=== PATIENT | male | born 1950 | race Caucasian/White ===

== ENCOUNTER 2016-04-15 20:55 | Emergency (ER) | payer MEDICARE, OTHER ==
[~2016-04-15] VITALS: Ht 170.2 cm; Wt 83.9 kg
[2016-04-15 22:03] LABS: BASO # 0.1 x10^3/uL (0.0-0.2); BASO % 1 % (0-3); EOS % 1 % (0-3); HEMATOCRIT 42.7 % (39.0-53.0); HEMOGLOBIN 14.1 g/dL (13.0-17.5); LYMPH # 2.4 x10^3/uL (1.0-4.8); LYMPH % 12 % (24-48); MEAN CORPUSCULAR HEMOGLOBIN 28 pg (25-35); MEAN CORPUSCULAR HGB CONC 33 g/dL (31-37); MEAN CORPUSCULAR VOLUME 83 fL (79-100); MONO % 9 % (0-9); NEUT % 78 % (31-73); PLATELET COUNT 288 x10^3/uL (140-400); RED BLOOD COUNT 5.14 x10^6/uL (4.30-5.70); RED CELL DISTRIBUTION WIDTH 14.1 % (11.5-14.5); WHITE BLOOD COUNT 20.1 x10^3/uL (4.0-11.0)
[2016-04-15 22:04] LABS: BILIRUBIN,URINE NEGATIVE (NEG); GLUCOSE,URINE NEGATIVE (NEG); NITRITE,URINE NEGATIVE (NEG); PROTEIN,URINE NEGATIVE (NEG-TRACE); UROBILINOGEN,URINE 0.2 mg/dL (0.2 mg/dL)
[2016-04-15 22:15] LABS: CREATININE 1.9 mg/dL (0.7-1.3); GFR 35.6; POTASSIUM 3.7 mmol/L (3.5-5.1)
[2016-04-15] MEDS ORDERED: IV NORMAL SALINE 1000ML BAG 1,000 ML IV ONE (22:15)
[2016-04-15 22:18] LABS: BACTERIA,URINE 0 /HPF (0-FEW); RBC,URINE OCC /HPF (0-2); SQUAMOUS EPITHELIAL CELL,UR OCC /LPF; WBC,URINE OCC /HPF (0-4)
[2016-04-15 22:21] LABS: ALBUMIN 4.6 g/dL (3.4-5.0); DIRECT BILIRUBIN 0.1 mg/dL (0.0-0.2); TOTAL BILIRUBIN 0.5 mg/dL (0.2-1.0); TOTAL PROTEIN 8.8 g/dL (6.4-8.2)
[2016-04-15] MEDS ORDERED: ONDANSETRON ODT 4 MG TAB.RAPDIS PO ONE (22:30)
[2016-04-15] MEDS ORDERED: HYDROCODONE/APAP 5/325MG TABLET. PO ONE (22:30)
--- NOTE | 2016-04-16 00:51 | RAD ---
PROCEDURE CT abdomen and pelvis without contrast HISTORY Abdominal pain and leukocytosis, renal stones TECHNIQUE Exposure: One or more of the following individualized dose reduction techniques were utilized for this exam: 1. Automated exposure control. 2. Adjustment of the mA and/or kV according to patient size. 3. Use of iterative reconstruction technique. Helical noncontrast CT imaging abdomen and pelvis COMPARISON No prior FINDINGS Abdomen: 2 centimeter sclerotic lesion L4 vertebral body. Lumbar disc bulges with osteophytes, spinal canal and neural foraminal narrowing. Lung bases unremarkable. Spleen, gallbladder, liver, pancreas and adrenals are unremarkable. Bilateral nephrolithiasis and mild renal edema. 3 centimeter left renal exophytic fluid density cystic lesion measuring 7 units. No ureteral calculi or hydronephrosis. Aorta and iliac artery calcified plaque. No abdominal free fluid. Right upper quadrant abdominal wall 5 centimeter intramuscular fatty lesion likely a lipoma. Appendix is negative. No bowel obstruction. Pelvis: Sigmoid colon diverticulosis with focal circumferential wall thickening and stranding with a hyperdense diverticulum likely diverticulitis, the edema involves the dome of the bladder where there is bladder wall thickening. No bladder calculi. Enlarged prostate. At the left groin anterior of the spermatic cord there is indeterminate 15 millimeter round hypodense lesion. Bones are unremarkable. IMPRESSION 1. Sigmoid colon diverticulitis with focal wall wall edema and thickening with a focal inflamed diverticulum. Due to the localized nature of wall thickening underlying colonic mass cannot be excluded. 2. Bladder dome wall thickening with edema contiguous with the sigmoid diverticulitis, may be reactive changes of the bladder or coinciding cystitis. 3. The appendix is negative. 4. 2 centimeter sclerotic bone lesion of the L4 vertebral body given the solitary lesion likely a bone island. 5. Right upper quadrant abdominal wall lipoma. 6. 3 centimeter exophytic left renal fluid density cystic lesion. 7. Nephrolithiasis. Electronically signed by: Maynor Verdin MD (Apr 16, 2016 00:49:50)
[2016-04-16] MEDS ORDERED: CIPR500T94 PO (02:03)
[2016-04-16] MEDS ORDERED: HYDR-2666 PO (02:05)
[2016-04-16] MEDS ORDERED: METR500T PO (02:05)
--- NOTE | 2016-04-16 02:05 | PHYS DOC ---
Past Medical History Past Medical History: Hypertension, Kidney Stone Past Surgical History: No Surgical History Alcohol Use: None Drug Use: None Adult General Chief Complaint Chief Complaint: ABDOMINAL PAIN HPI HPI 65-year-old male presenting to the emergency Department today with left lower quadrant to suprapubic abdominal pain with watery stools and chills at home. He denies chest pain shortness of breath. His pain is moderate nonradiating intermittent worse with urination and without alleviating factors. Review of systems is negative for chest pain shortness of breath headache or vomiting. All other review of systems is negative. Review of Systems Review of Systems see above Current Medications Current Medications Current Medications Medications (Trade) Dose Ordered Sig/Amira Start Time Stop Time Status Last Admin Dose Admin Acetaminophen/ Hydrocodone Bitart 2 tab 2 tab 1X ONCE 04/15/16 22:30 04/15/16 22:31 DC 04/15/16 22:27 2 TAB Ondansetron HCl (Zofran Odt) 4 mg 1X ONCE 04/15/16 22:30 04/15/16 22:31 DC 04/15/16 22:27 4 MG Sodium Chloride (Iv Sodium Chloride 0.9% 1000ml Bag) 1,000 ml @ 1,000 mls/hr 1X ONCE 04/15/16 22:15 04/15/16 23:14 DC 04/15/16 22:27 1,000 MLS/HR Allergies Allergies Allergies Coded Allergies Type Severity Reaction Last Updated Verified No Known Drug Allergies 04/15/16 No Physical Exam Physical Exam Constitutional: Well developed, well nourished, no acute distress, non-toxic appearance. [] HENT: Normocephalic, atraumatic, bilateral external ears normal, oropharynx moist, no oral exudates, nose normal. [] Eyes: PERRLA, EOMI, conjunctiva normal, no discharge. [] Neck: Normal range of motion, no tenderness, supple, no stridor. [] Cardiovascular:Heart rate regular rhythm, no murmur [] Lungs & Thorax: Bilateral breath sounds clear to auscultation [] Abdomen: abdomen is soft and mildly tenderness suprapubic region. No rebound tenderness regarding present. Negative McBurney's points. Negative Sommer sign. Skin: Warm, dry, no erythema, no rash. [] Back: No tenderness, no CVA tenderness. [] Extremities: No tenderness, no cyanosis, no clubbing, ROM intact, no edema. [] Neurologic: Alert and oriented X 3, normal motor function, normal sensory function, no focal deficits noted. [] Psychologic: Affect normal, judgement normal, mood normal. [] Current Patient Data Vital Signs Vital Signs Date Time Temp Pulse Resp B/P Pulse Ox O2 Delivery O2 Flow Rate FiO2 04/16/16 02:30 109 22 99/57 95 Room Air 04/15/16 21:58 98.6 98.6 Lab Values Laboratory Tests Test 04/15/16 21:32 04/15/16 21:55 04/15/16 22:22 Urine Collection Type Unknown Urine Color Yellow Urine Clarity Clear Urine pH 6.0 Urine Specific [place] 1.010 Urine Protein Negativemg/dL (NEG-TRACE) Urine Glucose (UA) Negativemg/dL (NEG) Urine Ketones (Stick) Negativemg/dL (NEG) Urine Blood Negative (NEG) Urine Nitrite Negative (NEG) Urine Bilirubin Negative (NEG) Urine Urobilinogen Dipstick 0.2mg/dL (0.2 mg/dL) Urine Leukocyte Esterase Negative (NEG) Urine RBC Occ/HPF (0-2) Urine WBC Occ/HPF (0-4) Urine Squamous Epithelial Cells Occ/LPF Urine Bacteria 0/HPF (0-FEW) Urine Mucus Slight/LPF White Blood Count 20.1x10^3/uL (4.0-11.0) H Red Blood Count 5.14x10^6/uL (4.30-5.70) Hemoglobin 14.1g/dL (13.0-17.5) Hematocrit 42.7% (39.0-53.0) Mean Corpuscular Volume 83fL (79-100) Mean Corpuscular Hemoglobin 28pg (25-35) Mean Corpuscular Hemoglobin Concent 33g/dL (31-37) Red Cell Distribution Width 14.1% (11.5-14.5) Platelet Count 288x10^3/uL (140-400) Neutrophils (%) (Auto) 78% (31-73) H Lymphocytes (%) (Auto) 12% (24-48) L Monocytes (%) (Auto) 9% (0-9) Eosinophils (%) (Auto) 1% (0-3) Basophils (%) (Auto) 1% (0-3) Neutrophils # (Auto) 15.7x10^3uL (1.8-7.7) H Lymphocytes # (Auto) 2.4x10^3/uL (1.0-4.8) Monocytes # (Auto) 1.7x10^3/uL (0.0-1.1) H Eosinophils # (Auto) 0.2x10^3/uL (0.0-0.7) Basophils # (Auto) 0.1x10^3/uL (0.0-0.2) Segmented Neutrophils % 61% (35-66) Band Neutrophils % 3% (0-9) Lymphocytes % 22% (24-48) L Atypical Lymphocytes % (Manual) 2% (0-0) H Monocytes % 12% (0-10) H Toxic Vacuolation Slight Platelet Estimate Adequate (ADEQUATE) Sodium Level 140mmol/L (136-145) Potassium Level 3.7mmol/L (3.5-5.1) Chloride Level 100mmol/L (98-107) Carbon Dioxide Level 30mmol/L (21-32) Anion Gap 10 (6-14) Blood Urea Nitrogen 32mg/dL (8-26) H Creatinine 1.9mg/dL (0.7-1.3) H Estimated GFR (Cockcroft-Gault) 35.6 Glucose Level 128mg/dL (70-99) H Calcium Level 10.0mg/dL (8.5-10.1) Total Bilirubin 0.5mg/dL (0.2-1.0) Direct Bilirubin 0.1mg/dL (0.0-0.2) Aspartate Amino Transferase (AST) 22U/L (15-37) Alanine Aminotransferase (ALT) 22U/L (16-63) Alkaline Phosphatase 85U/L (46-116) Troponin I Quantitative < 0.017ng/mL (0.000-0.055) QA-Pne-F-Type Natriuretic Peptide 67pg/mL (0-124) Total Protein 8.8g/dL (6.4-8.2) H Albumin 4.6g/dL (3.4-5.0) Lipase 214U/L (73-393) Lactic Acid Level 1.2mmol/L (0.4-2.0) Laboratory Tests 04/15/16 21:55 Laboratory Tests 04/15/16 21:55 EKG EKG [] Radiology/Procedures Radiology/Procedures [] Course & Med Decision Making Course & Med Decision Making Pertinent Labs and Imaging studies reviewed. (See chart for details) []65-year-old male presenting to the emergency Department with abdominal pain intermittent watery diarrhea and chills. He was tachycardic and mildly hypertensive in the emergency Department. IV fluids nausea and pain medication administered. Bloodwork obtained which showed leukocytosis and mild acute kidney injury. CT of the abdomen and pelvis showed diverticulitis. The patient was provided with oral pain medication along with antibiotics to follow-up with his PCP in two to three days for repeat chemistry panel and reevaluation. Dragon Disclaimer Dragon Disclaimer This electronic medical record was generated, in whole or in part, using a voice recognition dictation system. Departure Departure Impression: Primary Impression: Diverticulitis Disposition: ADMITTED INPATIENT Condition: STABLE Referrals: TAYE NG MD (PCP) Patient Instructions: Diverticulitis Additional Instructions: Thank you for allowing us to participate in your care today. Followup with your primary care physician in 3 days if your symptoms do not improve. If you do not have a primary care provider you can ask for a list of our primary care providers. Return to the emergency department you have any new or concerning findings. This should be evaluated by the primary care physician and any necessary consulting services for continued management within a few days after discharge. Return to emergency room if you have any new or concerning symptoms including but not limited to fever, chills, nausea, vomiting, intractable pain, any new rashes, chest pain, shortness of air, uncontrolled bleeding, difficulty breathing, and/or vision loss. You may have been prescribed medication that can change in your level of thinking and ability to operate machinery. These medications include hydrocodone and Ativan. Also, Benadryl has been known to do this as well. Be sure to check with your pharmacist and ask if the medications you've prescribed can affect your level of consciousness. I recommend not operating heavy machinery or driving while on medication such as these. Scripts Hydrocodone Bit/Acetaminophen (Hydrocodone-Apap 5-325 )1 Each Tablet1 Tab PO PRN Q6HRS PRN PAIN #15 TAB Be careful as this medication may cause you to be drowsy or tired. Do not drive on this medication. Prov:CLARISSA FIGUEROA MD 04/16/16 Metronidazole (Flagyl)500 Mg Tablet1 Tab PO BID #14 TAB Prov:CLARISSA FIGUEROA MD 04/16/16 Ciprofloxacin Hcl (Cipro)500 Mg Tablet1 Tab PO BID #20 TAB Prov:CLARISSA FIGUEROA MD 04/16/16 CLARISSA FIGUEROA MD Apr 16, 2016 02:05
[2016-04-16 02:30] VITALS: BP 99/57
[2016-04-16 04:12] LABS: PLT ESTIMATE ADEQUATE (ADEQUATE); TOXIC VACUOLATION SLIGHT
--- NOTE | 2016-04-16 18:48 | EKG ---
[facility] [address] [place] [address] Test Date: 2016-04-15 Test Time: 22:03:09 Pat Name: MARILEE BISHOP Department: Room: Gender: M Pattern Duplicator: TW EMT : 1950 Requested By: CLARISSA FIGUEROA Order Number: [id number] Reading MD: Dianna Hilliard Measurements Intervals [place] Rate: 111 P: 36 SC: 156 QRS: -45 QRSD: 86 T: 40 QT: 314 QTc: 430 Interpretive Statements SINUS TACHYCARDIA LEFT ATRIAL ABNORMALITY LEFT ANTERIOR FASCICULAR BLOCK ABNORMAL ECG RI6.01 No previous ECG available for comparison Electronically Signed On 04-17-2016 19:01:38 [employer] by Dianna Hilliard
== END 2016-04-16 02:29 | disposition home or self-care (01) ==
LOC: ER 20:55
DX: K57.92 Diverticulitis of intestine, part unspecified, without perforation or abscess without bleeding (principal); I10 Essential (primary) hypertension
CPT/HCPCS: 36415; 74176; 80048; 80076; 81001; 83605; 83690; 83880; 84484; 85007; 85027; 93005; 96360; 99285; J7030; Q0162

== ENCOUNTER 2016-04-18 16:37 | Inpatient (IN) | payer MEDICARE, OTHER ==
[~2016-04-18] VITALS: Ht 170.2 cm; Wt 87.1 kg
[~2016-04-18 16:37] MED LIST: CIPR500T94 PO; HYDR-2666 PO; METR500T PO
[2016-04-18] MEDS ORDERED: IV NORMAL SALINE 1000ML BAG 1,000 ML IV SCH (19:00)
[2016-04-18] MEDS ORDERED: ACETAMINOPHEN 325 MG TABLET. PO PRN (19:00)
[2016-04-18] MEDS ORDERED: MORPHINE SULFATE 4 MG/ML DISP.SYRIN. IV/SQ PRN (19:00)
[2016-04-18] MEDS ORDERED: LEVOFLOXACIN PER PHARMACY MC PRN (19:00)
[2016-04-18] MEDS ORDERED: ONDANSETRON PF 4 MG/2 ML VIAL. IV PRN (19:00)
[2016-04-18] MEDS ORDERED: ONDANSETRON PF 4 MG/2 ML VIAL. IV ONE (19:00)
[2016-04-18] MEDS ORDERED: MORPHINE SULFATE 4 MG/ML DISP.SYRIN. IV PRN (19:00)
--- NOTE | 2016-04-18 19:03 | PHYS DOC ---
Past Medical History Past Medical History: Diverticulitis, Hypertension, Kidney Stone Past Surgical History: No Surgical History Alcohol Use: Occasionally Drug Use: None Adult General Chief Complaint Chief Complaint: ABDOMINAL PAIN HPI HPI Patient is a 65 year old male who presents with worsening nausea and vomiting and abdominal pain since being seen here on 04/15/16 and diagnosed with diverticulitis. Pain is achy, now diffuse, constant, worse after emesis. States he has been able to keep his pills down, but he has not been able to keep down liquids or solids otherwise. He has not been able to see his doctor yet. He has not been taking nausea medicine at home. He denies measured fever, diarrhea, bloody or bilious emesis, bloody stools, hematuria, cough, chest pain, lightheadedness. States he was having some pain with urination on prior exam, but this has resolved. Review of Systems Review of Systems Constitutional: Denies fever or chills [] Eyes: Denies change in visual acuity, redness, or eye pain [] HENT: Denies nasal congestion or sore throat [] Respiratory: Denies cough or shortness of breath [] Cardiovascular: No additional information not addressed in HPI [] GI: Denies bloody stools or diarrhea [] : Denies dysuria or hematuria [] Musculoskeletal: Denies joint pain [] Integument: Denies rash or skin lesions [] Neurologic: Denies headache, focal weakness or sensory changes [] Endocrine: Denies polyuria or polydipsia [] Current Medications Current Medications Current Medications Medications (Trade) Dose Ordered Sig/Amira Start Time Stop Time Status Last Admin Dose Admin Acetaminophen 650 mg 650 mg PRN Q4HRS PRN 04/18/16 19:00 04/19/16 18:59 Levofloxacin/ Dextrose 50 ml @ 50 mls/hr Q24H 04/19/16 20:00 Levofloxacin/ Dextrose 1 each 1 each PRN DAILY PRN 04/18/16 19:00 Metronidazole (FLAGYL 500Mmg PREMIX) 100 ml @ 100 mls/hr Q12HR 04/18/16 19:30 04/18/16 20:33 100 MLS/HR Morphine Sulfate 2 mg PRN Q2HR PRN 04/18/16 21:15 Ondansetron HCl (Zofran) 4 mg PRN Q8HRS PRN 04/18/16 19:00 04/19/16 18:59 Sodium Chloride (Iv Sodium Chloride 0.9% 1000ml Bag) 1,000 ml @ 150 mls/hr 1X ONCE 04/18/16 20:30 04/19/16 03:09 04/18/16 21:02 150 MLS/HR Allergies Allergies Allergies Coded Allergies Type Severity Reaction Last Updated Verified No Known Drug Allergies 04/15/16 No Physical Exam Physical Exam Constitutional: Well developed, well nourished, no acute distress, non-toxic appearance. [] HENT: Normocephalic, atraumatic, bilateral external ears normal, oropharynx moist, nose normal. [] Eyes: PERRLA, EOMI. [] Neck: Normal range of motion, supple. [] Cardiovascular:Heart rate regular rhythm [] Lungs & Thorax: Bilateral breath sounds clear to auscultation [] Abdomen: Bowel sounds normal, soft, moderate diffuse tenderness, worse in left lower quadrant, no guarding or rebound. [] Skin: Warm, dry, no erythema, no rash. [] Back: No tenderness, no CVA tenderness. [] Extremities: No tenderness, ROM intact, no edema. [] Neurologic: Alert and oriented X 3, normal motor function, normal sensory function, no focal deficits noted. [] Psychologic: Affect normal, judgement normal, mood normal. [] Current Patient Data Vital Signs Vital Signs Date Time Temp Pulse Resp B/P Pulse Ox O2 Delivery O2 Flow Rate FiO2 04/18/16 20:58 87 19 94/57 96 Nasal Cannula 4 04/18/16 18:31 98.4 98.4 Lab Values Laboratory Tests Test 04/18/16 19:10 White Blood Count 14.5x10^3/uL (4.0-11.0) H Red Blood Count 4.18x10^6/uL (4.30-5.70) L Hemoglobin 11.5g/dL (13.0-17.5) L Hematocrit 35.3% (39.0-53.0) L Mean Corpuscular Volume 84fL (79-100) Mean Corpuscular Hemoglobin 27pg (25-35) Mean Corpuscular Hemoglobin Concent 33g/dL (31-37) Red Cell Distribution Width 14.4% (11.5-14.5) Platelet Count 233x10^3/uL (140-400) Neutrophils (%) (Auto) 89% (31-73) H Lymphocytes (%) (Auto) 4% (24-48) L Monocytes (%) (Auto) 6% (0-9) Eosinophils (%) (Auto) 1% (0-3) Basophils (%) (Auto) 0% (0-3) Neutrophils # (Auto) 13.0x10^3uL (1.8-7.7) H Lymphocytes # (Auto) 0.6x10^3/uL (1.0-4.8) L Monocytes # (Auto) 0.9x10^3/uL (0.0-1.1) Eosinophils # (Auto) 0.1x10^3/uL (0.0-0.7) Basophils # (Auto) 0.0x10^3/uL (0.0-0.2) Segmented Neutrophils % 81% (35-66) H Band Neutrophils % 8% (0-9) Lymphocytes % 10% (24-48) L Monocytes % 1% (0-10) Toxic Granulation Mod Platelet Estimate Adequate (ADEQUATE) Sodium Level 141mmol/L (136-145) Potassium Level 3.8mmol/L (3.5-5.1) Chloride Level 99mmol/L (98-107) Carbon Dioxide Level 29mmol/L (21-32) Anion Gap 13 (6-14) Blood Urea Nitrogen 56mg/dL (8-26) H Creatinine 3.7mg/dL (0.7-1.3) H Estimated GFR (Cockcroft-Gault) 16.5 Glucose Level 132mg/dL (70-99) H Calcium Level 9.5mg/dL (8.5-10.1) Total Bilirubin 0.4mg/dL (0.2-1.0) Direct Bilirubin 0.1mg/dL (0.0-0.2) Aspartate Amino Transferase (AST) 14U/L (15-37) L Alanine Aminotransferase (ALT) 12U/L (16-63) L Alkaline Phosphatase 69U/L (46-116) Total Protein 7.9g/dL (6.4-8.2) Albumin 3.4g/dL (3.4-5.0) Lipase 103U/L (73-393) Laboratory Tests 04/18/16 19:10 Laboratory Tests 04/18/16 19:10 Course & Med Decision Making Course & Med Decision Making Pertinent Labs and Imaging studies reviewed. (See chart for details) Workup is remarkable for acute renal failure. Recommend admission for IV antibiotics and hydration after failed outpatient therapy. Discussed case with Dr. Smith, who agrees to admit. Dragon Disclaimer Dragon Disclaimer This electronic medical record was generated, in whole or in part, using a voice recognition dictation system. Departure Departure Impression: Primary Impression: Diverticulitis Additional Impression: Acute renal failure Disposition: ADMITTED INPATIENT Condition: STABLE Referrals: TAYE SMITH MD (PCP) Problem Qualifiers Primary Impression: Diverticulitis Diverticulitis site: large intestine Diverticulitis bleeding: without bleeding Diverticulitis complication: without perforation or abscess Qualified Code: K57.32 - Diverticulitis of large intestine without perforation or abscess without bleeding Additional Impression: Acute renal failure Acute renal failure type: unspecified Qualified Code: N17.9 - Acute kidney failure, unspecified Brennon PARR MD Apr 18, 2016 19:03
[2016-04-18 19:21] LABS: BASO % 0 % (0-3); EOS % 1 % (0-3); HEMATOCRIT 35.3 % (39.0-53.0); HEMOGLOBIN 11.5 g/dL (13.0-17.5); LYMPH # 0.6 x10^3/uL (1.0-4.8); LYMPH % 4 % (24-48); MEAN CORPUSCULAR HEMOGLOBIN 27 pg (25-35); MEAN CORPUSCULAR HGB CONC 33 g/dL (31-37); MEAN CORPUSCULAR VOLUME 84 fL (79-100); MONO % 6 % (0-9); NEUT % 89 % (31-73); PLATELET COUNT 233 x10^3/uL (140-400); RED BLOOD COUNT 4.18 x10^6/uL (4.30-5.70); RED CELL DISTRIBUTION WIDTH 14.4 % (11.5-14.5); WHITE BLOOD COUNT 14.5 x10^3/uL (4.0-11.0)
[2016-04-18 19:47] LABS: CALCIUM 9.5 mg/dL (8.5-10.1); CREATININE 3.7 mg/dL (0.7-1.3); GFR 16.5; POTASSIUM 3.8 mmol/L (3.5-5.1)
[2016-04-18 19:53] LABS: ALBUMIN 3.4 g/dL (3.4-5.0); DIRECT BILIRUBIN 0.1 mg/dL (0.0-0.2); TOTAL BILIRUBIN 0.4 mg/dL (0.2-1.0); TOTAL PROTEIN 7.9 g/dL (6.4-8.2)
[2016-04-18 20:12] LABS: PLT ESTIMATE ADEQUATE (ADEQUATE); TOXIC GRANULATION MOD
[2016-04-18] MEDS ORDERED: IV NORMAL SALINE 1000ML BAG 1,000 ML IV ONE (20:30)
[2016-04-18] MEDS: METRONIDAZOLE 500mg PREMIX 100 ML IV SCH (20:33)
[2016-04-18] MEDS: MORPHINE SULFATE 2 MG/ML DISP.SYRIN. IV PRN (23:09)
[2016-04-19] VITALS (7 sets, daily range): BP systolic 100–128; BP diastolic 62–78
--- NOTE | 2016-04-19 01:05 | ACF ---
Admission Forms Criteria ABDOMINAL PAIN Clinical Indications for Admission to Inpatient Care (Place 'X' for any and all applicable criteria): Admission is indicated for ANY ONE of the following(1)(2)(3)(4)(5): [X]I. Inpatient admission required rather than observation care (Also use Abdominal Pain: Observation Care, as appropriate) because of ANY ONE of the following: [ ]a) Severe pain requiring acute inpatient management [X]b) Identification of etiology/finding that requires inpatient care (eg, aortic dissection, free air) [ ]c) Absent bowel sounds with complete ileus(6) [ ]d) Suspected toxic megacolon [ ]e) Severe electrolyte abnormalities requiring inpatient care [ ]f) High fever or infection requiring inpatient admission as indicated by ANY ONE of following(7)(8): [ ] i) Appropriate outpatient or observational care antimicrobial treatment unavailable, not effective, or not feasible [ ] ii) Documented bacteremia [ ] iii) Temperature > 104.9 degrees F (oral) [ ] iv) T >103.1 F (oral) or < 96.8 F(rectal) that does not respond to all emergency treatment measures [ ]g) Signs of intestinal obstruction [B] [ ]h) Hemodynamic instability [ ]i) IV fluid to replace significant ongoing losses (greater than 3 L/m2 per day) (12)(13) [ ]j) Percutaneous or open drainage (eg, abscess, biliary tract ) procedures [ ]k) Parenteral nutrition regimen that must be implemented on inpatient basis [ ]l) Other condition,treatment or monitoring requiring inpatient admission. [ ]II. Peritoneal signs present [ ]III. Surgery needed that cannot be performed on an ambulatory basis. [ ]IV. Evaluation requires patient to not eat or drink for extended period ( eg, more than 24 hours). [ ]V. Contraindications and/or Inappropriate clinical situations for Observational Care in patients with abdominal pain, when ANY ONE of the following is required: [ ]a) Thorough evaluation is required to prevent catastrophic events due to delays in diagnosing (e.g.Mesenteric ischemia) 1,3 [ ]b) Patient with severe pathology or with chronic symptoms unlikely to improve in the ED stay (3) [ ]. General contraindications and/or Inappropriate clinical situations for Observational Care in patients with abdominal pain, when ANY ONE of the following is required: [ ]a) Prediction of prolongation of LOS based on ANY ONE of the following may be considered as a contraindication for observational care 2, 3, 4, 5, 6, 7, 8, 9, 10, 11 [ ]i) Age > 65 yrs. [ ]ii) Patient arriving by ambulance [ ]iii) Patient with high acuity [ ]iv) Patient requiring vital sign monitoring [ ]v) Patient on IV medication [ ]b) Systolic blood pressures 180mmHg 3,12 [ ]c) Patient with altered mental status including delirium and other alteration of consciousness, (3) [ ]d) Patient whose discharge disposition will be to a assisted home or rehabilitation home should not be managed in Emergency Department Observation Unit. CMS rule requires 3 days hospital stay before such placement.3,13 [ ]e) Patient with failure to thrive due to broad array of etiologies 3,16,17 [ ]f) Inability to ambulate 3,14 Extended stay beyond goal length of stay may be needed for(2)(3): [ ]a) Persistent abdominal pain with suspected intra-abdominal process [ ]b) Diagnosed condition requiring continued stay (e.g., pancreatitis, complicated diverticulitis) [ ]c) Surgery (e.g., colectomy) The original [facility] content created by [employer] has been revised. The portions of the content which have been revised are identified through the use of italic text or in bold, and [email or web address] has neither reviewed nor approved the modified material.All other unmodified content is copyright [facility] [employer] Please see references footnoted in the original [facility] edition 2016 Admission Criteria Met?: Yes CHE SIN Apr 19, 2016 01:05
[2016-04-19] MEDS: MORPHINE SULFATE 2 MG/ML DISP.SYRIN. IV PRN ×4 (01:26→20:23)
[2016-04-19] MEDS: MORPHINE SULFATE 4 MG/ML DISP.SYRIN. IV PRN ×6 (06:31→16:40)
[2016-04-19] MEDS: METRONIDAZOLE 500mg PREMIX 100 ML IV SCH ×2 (08:35→21:22)
--- NOTE | 2016-04-19 08:50 | PDOC ---
Provider Note Provider Note [id number] TAYE NG MD Apr 19, 2016 08:50
[2016-04-19] MEDS: IV DEXTROSE 5%-LACT RINGERS 1,000 ML IV SCH ×3 (10:24→23:53)
--- NOTE | 2016-04-19 10:50 | HP ---
ADMIT DATE: 04/18/2016 CHIEF COMPLAINT: Abdominal pain. HISTORY OF PRESENT ILLNESS: A 65-year-old white male with known hypertension and chronic gout was last seen in the office about 7 or 8 months ago. He also has a history of CKD 3, last creatinine around 1.76 and GFR around 40. He began having abdominal pain and nausea about 3 days prior to admission and came to the [place] ER. CT scan showed evidence of low sigmoid diverticulitis without obvious abscess formation and his creatinine at that time was 1.9. He was placed on Cipro and Flagyl, but has had increasing pain and poor oral intake and also some nausea and vomiting and decreased urine output. ER showed a creatinine up to 3.9. He was admitted with IV fluids and IV antibiotics. PAST HISTORY: Colonoscopy about 7 years ago. No other known serious medical problems. ALLERGIES: No drug allergies. SOCIAL HISTORY: Nonsmoker, , nondrinker, physically active, employed. FAMILY HISTORY: Unremarkable. REVIEW OF SYSTEMS: No other specific complaints, particularly no GI complaints. OBJECTIVE: ENT: Mucosa mildly dry, otherwise unremarkable. NECK: Revealed no carotid bruits, nodes or thyroid enlargement. LUNGS: Clear, without tachypnea. CARDIOVASCULAR: Regular rate, rate is 100. No murmur or irregular beat. ABDOMEN: Soft in the upper quadrants, some moderate guarding in the left lower quadrant with mild rebound tenderness and certainly more tenderness over the suprapubic area. There are no significant peritoneal signs. Bowel sounds are diminished. EXTREMITIES: Excellent pedal and radial pulses. Skin turgor mildly decreased. No acute change. NEUROLOGIC: Physiologic, nonfocal. ASSESSMENT: 1. Acute sigmoid diverticulitis. Failure of outpatient therapy mainly secondary to intolerance of antibiotics. 2. Acute renal failure likely secondary to poor oral intake, dehydration, hypotension and recent renal contrast. Normal baseline creatinine is 1.76. PLAN: Aggressive IV rehydration for renal support. Hold blood pressure meds, continue IV Cipro and Flagyl for now. May need another CT. Depending on clinical response, we will hold for now given the intolerance to contrast. TAYE NG MD DR: DALILA/lucas JOB#: [id number] / [id number]
[2016-04-19] MEDS ORDERED: INDO50CA PO (12:31)
[2016-04-19] MEDS ORDERED: LISI1TAB5 PO (12:34)
[2016-04-19] MEDS ORDERED: ALLO300T PO (12:36)
[2016-04-19] MEDS: ONDANSETRON ODT 4 MG TAB.RAPDIS PO PRN (20:09)
[2016-04-19] MEDS: HYDROCODONE/APAP 7.5/325MG TABLET. PO PRN ×2 (20:09→23:54)
[2016-04-20 03:09] VITALS: BP 113/72
[2016-04-20] MEDS: IV DEXTROSE 5%-LACT RINGERS 1,000 ML IV SCH ×3 (04:05→20:16)
[2016-04-20] MEDS: HYDROCODONE/APAP 7.5/325MG TABLET. PO PRN ×5 (04:05→20:16)
[2016-04-20 07:00] VITALS: BP 121/76
[2016-04-20 07:53] LABS: CALCIUM 8.8 mg/dL (8.5-10.1); CREATININE 1.9 mg/dL (0.7-1.3); GFR 35.6; POTASSIUM 3.6 mmol/L (3.5-5.1)
[2016-04-20] MEDS: METRONIDAZOLE 500mg PREMIX 100 ML IV SCH ×2 (07:54→21:12)
--- NOTE | 2016-04-20 08:12 | PDOC ---
Provider Note Provider Note no temp, good output , pain only a little better- still very tender w/ guarding LLQ/SP area- good bs- creat back to 1.9, baseline- renal failure resolved, will repeat ct/ no contrast re ? abscess formati=ion- reduce iv fluid TAYE NG MD Apr 20, 2016 08:12
[2016-04-20] MEDS ORDERED: CONTRAST GIVEN MC PRN (10:15)
[2016-04-20] MEDS ORDERED: IOHEXOL 240 MG/ML 50ML VIAL. PO ONE (10:15)
[2016-04-20 10:40] VITALS: BP 112/75
--- NOTE | 2016-04-20 13:25 | RAD ---
INDICATION: Abdominal pain with concern for diverticulitis. COMPARISON: 04/16/2016 TECHNIQUE: Axial CT images were obtained through the abdomen and pelvis without intravenous contrast. Coronal reformations were processed. FINDINGS: Abdomen: Chest Base: Linear opacity left lower lung, could be atelectasis. Small pericardial fluid. Vessels: Mild calcific atherosclerosis. Liver/Biliary: No intrahepatic biliary duct dilation. Pancreas: No definite adjacent edema Spleen: Normal. Kidneys/Adrenal: 35 mm cystic lesion left kidney. Multiple bilateral nonobstructive renal stones measuring up to about 6 mm. No hydronephrosis. GI: Repeat demonstration of wall thickening of the sigmoid region with adjacent edema to the fat within the pelvis adjacent to the sigmoid colon there is a small fluid and air collection identified measuring approximately 60 x 40 mm Pelvis: Bladder: Partially distended without gross abnormality. In the left groin adjacent to the penis there is a subcutaneous 16 mm cystic attenuation lesion. Left fat-containing inguinal hernia. Degenerative changes spine. This contributes to bilateral neural foraminal narrowing at multiple levels including L4-5 and L5-S1. IMPRESSION: 1. Repeat demonstration of wall thickening of the sigmoid colon with adjacent edema which could be from diverticulitis or colitis but follow-up will be needed after treatment to ensure resolution to exclude neoplastic causes. 2. Adjacent to the sigmoid colon there is now a fluid and air pocket identified which could be secondary to abscess formation. Given the flecks of air within this could be secondary to fistula with the adjacent bowel or focal microperforation. Infectious involvement with gas-forming organism also in differential. 3. Repeat demonstration of some scattered sclerotic foci in the osseous structures. Could be bone islands unless the patient has history of neoplasm. 4. Repeat demonstration of suspected lipoma in right upper abdominal wall musculature. 5. Left groin subcutaneous cystic structures identified. Could be a skin associated lesion such as sebaceous cyst or infectious radiology but would correlate with physical exam findings. PQRS Compliance Statement: One or more of the following individualized dose reduction techniques were utilized for this examination: 1. Automated exposure control 2. Adjustment of the mA and/or kV according to patient size 3. Use of iterative reconstruction technique
[2016-04-20 15:00] VITALS: BP 118/73
[2016-04-20 19:00] VITALS: BP 137/88
[2016-04-20 23:33] VITALS: BP 139/87
[2016-04-21] VITALS (14 sets, daily range): BP systolic 126–157; BP diastolic 82–97
[2016-04-21] MEDS: ONDANSETRON ODT 4 MG TAB.RAPDIS PO PRN ×2 (07:03→20:31)
--- NOTE | 2016-04-21 08:51 | PDOC ---
Provider Note Provider Note pain seems less last 12 hrs, still nausea- no temp, bp ok- abd is less tender in LLQ/SP area now from 04/20- ct shows poss microperf/small abscess- will have surg and IR see re ? need for drainage vs continuing conser management, adv to TAYE MONDRAGON MD Apr 21, 2016 08:51
[2016-04-21] MEDS: METRONIDAZOLE 500mg PREMIX 100 ML IV SCH ×2 (08:59→21:12)
--- NOTE | 2016-04-21 09:37 | PDOC2 ---
ELANCASSIDY Arnaldo PROJECT MANAGEMENT IT SPECIALIST 04/21/16 0937: CONSULT Date of Consult Date of Consult DATE: 04/21/16 TIME: 09:33 Reason for Consult Reason for Consult: diverticulitis Referring Physician Referring Physician: Dr head Identification/Chief Complaint Chief Complaint abdominal pain Source Source: Chart review, Patient History of Present Illness Reason for Visit: Pain to lower abdomen since last Monday. Last couple of days had been better. + nausea and emesis. Tarry stools. No history of diverticulitis, last colonoscopy 7 years ago Past Medical History Cardiovascular: HTN Musculoskeletal: Other (gout) Past Surgical History Past Surgical History: No pertinent history Family History Family History: Other (noncontributory to current illness) Social History No ALCOHOL: none Drugs: None Lives: Alone Current Problem List Problem List Problems Medical Problems: (1) Acute renal failure Status: Acute (2) Diverticulitis Status: Acute (3) Diverticulitis Status: Acute Current Medications Current Medications Current Medications Morphine Sulfate 4 mg 4 mg PRN Q15MIN PRN IV/SQ PAIN GREATER THAN 3/10 Last administered on 04/18/16 20:44; Start 04/18/16 at 19:00; Stop 04/18/16 at 23:00 ; Status DC Sodium Chloride (Iv Sodium Chloride 0.9% 1000ml Bag) 1,000 ml @ 1,000 mls/hr Q1H IV Last administered on 04/18/16 19:15; Start 04/18/16 at 19:00; Stop at 19:59; Status DC Ondansetron HCl (Zofran) 4 mg 1X ONCE IV Last administered on 04/18/16 19:15 ; Start 04/18/16 at 19:00; Stop 04/18/16 at 19:01; Status DC Ondansetron HCl (Zofran) 4 mg PRN Q8HRS PRN IV NAUSEA/VOMITING Last administered on 04/19/16 01:26; Start 04/18/16 at 19:00; Stop 04/19/16 at 19:00 ; Status DC Morphine Sulfate 4 mg PRN Q2HR PRN IV PAIN; Start 04/18/16 at 19:00; Stop 04/18 at 21:01; Status DC Acetaminophen 650 mg 650 mg PRN Q4HRS PRN PO FEVER; Start 04/18/16 at 19:00; Stop 04/19/16 at 19:00; Status DC Metronidazole (FLAGYL 500Mmg PREMIX) 100 ml @ 100 mls/hr Q12HR IV Last administered on 04/21/16 08:59; Start 04/18/16 at 19:30 Levofloxacin/ Dextrose 1 each 1 each PRN DAILY PRN MC SEE COMMENTS; Start 04/18 at 19:00 Levofloxacin/ Dextrose 100 ml @ 100 mls/hr 1X ONCE IV Last administered on 19:15; Start 04/18/16 at 19:15; Stop 04/18/16 at 20:14; Status DC Levofloxacin/ Dextrose 50 ml @ 50 mls/hr Q24H IV Last administered on 20:16; Start 04/19/16 at 20:00 Sodium Chloride (Iv Sodium Chloride 0.9% 1000ml Bag) 1,000 ml @ 150 mls/hr 1X ONCE IV Last administered on 04/18/16 21:02; Start 04/18/16 at 20:30; Stop at 03:09; Status DC Morphine Sulfate 2 mg PRN Q2HR PRN IV PAIN Last administered on 04/19/16 20:23 ; Start 04/18/16 at 21:15; Stop 04/20/16 at 08:11; Status DC Morphine Sulfate 4 mg 4 mg PRN Q2HR PRN IV PAIN Last administered on 04/19/16 16:40; Start 04/19/16 at 06:30; Stop 04/20/16 at 08:11; Status DC Dextrose/Lactated Ringer's (Iv D5%-Lr) 1,000 ml @ 75 mls/hr [id number] IV Last administered on 04/20/16 20:16; Start 04/19/16 at 09:00; Stop 04/21/16 at 08:49 ; Status DC Acetaminophen/ Hydrocodone Bitart (Lortab 7.5/325) 1 tab PRN Q4HRS PRN PO PAIN Last administered on 04/20/16 20:16; Start 04/19/16 at 20:00 Ondansetron HCl (Zofran Odt) 4 mg PRN Q8HRS PRN PO NAUSEA/VOMITING Last administered on 2/16/17at 07:03; Start 04/19/16 at 20:00; Stop 04/21/16 at 08:49 ; Status DC Iohexol (Omnipaque 240 Mg/ml) 30 ml 1X ONCE PO Last administered on 04/20/16t 12:29; Start 04/20/16 at 10:15; Stop 04/20/16 at 10:16; Status DC Info (Do NOT chart on this entry -- for MONITORING) 1 each PRN DAILY PRN MC SEE COMMENTS; Start 04/20/16 at 10:15; Stop 04/22/16 at 10:14 Ondansetron HCl (Zofran Odt) 4 mg PRN QID PRN PO NAUSEA/VOMITING; Start at 20:00 Active Scripts Active Hydrocodone-Apap 5-325 (Hydrocodone Bit/Acetaminophen) 1 Each Tablet 1 Tab PO PRN Q6HRS PRN Be careful as this medication may cause you to be drowsy or tired. Do not drive on this medication. Flagyl (Metronidazole) 500 Mg Tablet 1 Tab PO BID Cipro (Ciprofloxacin Hcl) 500 Mg Tablet 1 Tab PO BID Reported Allopurinol 300 Mg Tablet 300 Mg PO DAILY Lisinopril-Hctz 20-12.5 Mg Tab (Lisinopril/Hydrochlorothiazide) 1 Each Tablet 2 Tab PO DAILY Indomethacin 50 Mg Capsule 1 Cap PO DAILY Allergies Allergies: Coded Allergies: No Known Drug Allergies (Unverified , 04/15/16) ROS General: No: Chills, Other (fevers) PSYCHOLOGICAL ROS: No: Anxiety, Depression Eyes: No Blurry vision, No Double vision HEENT: No: Heacaches, Sore Throat Hematological and Lymphatic: No: Bleeding Problems, Blood Clots Respiratory: No: Cough, Shortness of breath Cardiovascular: No Chest Pain, No Palpitations Gastrointestinal: Yes Other (see hpi) Genitourinary: No Dysuria, No Hematuria Musculoskeletal: No Joint Pain, No Muscle Pain Neurological: No Confusion, No Numbness/Tingling Skin: No Pruritus, No Rash Physical Exam General: Alert, Oriented X3, Cooperative, No acute distress HEENT: PERRLA, Mucous membr. moist/pink Lungs: Clear to auscultation, Normal air movement Heart: Regular rate, Normal S1, Normal S2, No murmurs Abdomen: Soft, Other (ND, moderate TTP LLQ, mild TTP periumbilical ) Extremities: No clubbing, No cyanosis Skin: No rashes, No breakdown Neuro: Normal speech, Sensation intact Psych/Mental Status: Mental status NL, Mood NL MUSCULOSKELETAL: No deformity, No swelling Vitals VITALS Vital Signs Date Time Temp Pulse Resp B/P Pulse Ox O2 Delivery O2 Flow Rate FiO2 04/21/16 08:10 Room Air 04/21/16 07:00 98.6 91 18 149/97 89 4.0 98.6 Labs Labs Laboratory Tests Test 04/20/16 06:40 Sodium Level 144mmol/L (136-145) Potassium Level 3.6mmol/L (3.5-5.1) Chloride Level 105mmol/L (98-107) Carbon Dioxide Level 29mmol/L (21-32) Anion Gap 10 (6-14) Blood Urea Nitrogen 34mg/dL (8-26) Creatinine 1.9mg/dL (0.7-1.3) Estimated GFR (Cockcroft-Gault) 35.6 Glucose Level 122mg/dL (70-99) Calcium Level 8.8mg/dL (8.5-10.1) Assessment/Plan Assessment/Plan diverticulitis, microperf, small abscess abscess may be too small for drainage, will have Dr Small review continue IV abx, ID consulted YOVANNY SMALL MD 04/21/16 1006: CONSULT Allergies Allergies: Coded Allergies: No Known Drug Allergies (Unverified , 04/15/16) Assessment/Plan Assessment/Plan pt seen, interviewed and examined will review CT with IR no acute surgical recs will follow with you Thanks for consult CASSIDY ANSARI APRN Apr 21, 2016 09:37 YOVANNY SMALL MD Apr 21, 2016 10:06
[2016-04-21 11:07] LABS: INR 1.2 (0.8-1.1); PROTHROMBIN TIME PATIENT 14.6 SEC (11.7-14.0)
[2016-04-21] MEDS ORDERED: LIDOCAINE 1% / SOD BICARB 8.4% 20 ML VIAL. IJ ONE ×2 (12:46→14:00)
[2016-04-21] MEDS ORDERED: FLUMAZENIL 0.5 MG/5 ML VIAL. IV ONE (12:55)
[2016-04-21] MEDS ORDERED: MIDAZOLAM HCL/PF 5 MG/5 ML VIAL ONE (12:55)
[2016-04-21] MEDS ORDERED: NALOXONE 0.4 MG/ML VIAL. ONE (12:55)
[2016-04-21] MEDS ORDERED: FENTANYL PF 250 MCG/5 ML VIAL. ONE (12:56)
[2016-04-21] MEDS ORDERED: FENTANYL PF 250 MCG/5 ML VIAL. IV ONE (14:00)
[2016-04-21] MEDS ORDERED: MIDAZOLAM HCL/PF 5 MG/5 ML VIAL IV ONE (14:00)
--- NOTE | 2016-04-21 14:03 | PDOC ---
MODERATE SEDATION ASSESSMENT RISKS/ALTERNATIVES Risks/Alternatives Risks and alternatives of this type of sedation and procedure discussed with: RISK/ALTERNATIVES: Patient H & P ON CHART H & P H & P on chart and reviewed for co-morbid conditions and appropriate labs. H&P ON CHART: Yes STATUS PREG STATUS ASSESSED: N/A MEDS/ALLERGIES REVIEWED Meds/Allergies Reviewed Medications and Allergies including time and route of recently administered narcotics and sedatives. MEDS/ALLERGIES REVIEWED: Yes ASA RATING ASA RATING: II AIRWAY ASSESSMENT Airway Assessment Airway patency, oral function limitations, presence of caps, crowns, dentures, partials, and ability to extend neck assessed. AIRWAY ASSESSMENT: Yes MALLAMPATI SCORE MALLAMPATI SCORE: III PRE-SEDATION ASSESSMENT PRE-SEDATION ASSESSMENT: Yes LADONNA BLAKE MD Apr 21, 2016 14:03
--- NOTE | 2016-04-21 14:03 | PDOC ---
Exam Firebrick And Refractory Tile Repairer Firebrick And Refractory Tile Repairer Li Tooth Cutter Pinion Tooth Cutter Pinion F Ndumbu Pre-Procedure Diagnosis Pre-Procedure Diagnosis Pelvic complex fluid collection/probable abscess, likely sigmoid diverticular in origin Post-Procedure Diagnosis Post-Procedure Diagnosis Same Procedure Performed Procedure Performed CT guided pelvic drain catheter insertion Type of Anesthesia Type of Anesthesia Local + Mod sedation Estimated Blood Loss EBL: Minimal Specimens Specimans 35 cc complex fluid---sample to micro for aerobic/anaerobic C7S Drain/Tubes Drains/Tubes 12F locking pigtail drain catheter---to bulb suction. Condition of Patient Condition of Patient Stable. No apparent complication. Disposition Disposition From IR/CT return to [facility]. F/u with Dr Smith and general surgery. Full report to follow. LADONNA BLAKE MD Apr 21, 2016 14:03
[2016-04-21] MEDS: HYDROCODONE/APAP 7.5/325MG TABLET. PO PRN (20:31)
[2016-04-22] MEDS: HYDROCODONE/APAP 7.5/325MG TABLET. PO PRN ×4 (02:59→20:20)
[2016-04-22 04:00] VITALS: BP 133/80
[2016-04-22 07:00] VITALS: BP 138/91
--- NOTE | 2016-04-22 07:51 | RAD ---
CT-guided insertion of pelvic abscess drainage catheter Indication: 65-year-old male with history of sigmoid diverticulitis. A well-defined perisigmoid complex fluid collection, suggesting diverticular abscess, extends into rectovesical space. CT-guided drainage has been requested. Anesthesia: 32 minutes moderate sedation was provided utilizing a total of 1.5 mg Versed and 100 mcg fentanyl, IV. The patient was appropriately monitored by a qualified independent observer throughout the time of moderate sedation. Consent: The procedure was explained in its entirety to the patient and/or the patient's designated solar sales representative by a member of the treatment team. This included a discussion of risks and benefits and acceptable alternatives to the procedure, as well as expected consequences of no treatment at all. Discussion of risks included, but was not limited to, those that are most frequent and those that are rare, but possibly severe or life-threatening, as well as the possibility of unforeseen complications. Procedure: Informed consent was obtained from the patient. He was placed on the CT scanner in the left lateral decubitus position. Preliminary noncontrast CT images confirmed the previously described probable diverticular abscess, with extension into the rectovesical space.. A right posterior skin site suitable for transgluteal drainage catheter insertion was selected and marked. That area was prepped and draped in the usual sterile fashion. Moderate sedation was provided with IV Versed and fentanyl. Using aseptic technique, local anesthesia, and CT guidance, a 19-gauge needle was successfully introduced into the complex fluid collection within rectovesical space. The needle was removed over a guidewire. The percutaneous tract was dilated and a 12 Serbian locking pigtail drainage catheter was easily introduced. Approximately 35 cc of complex fluid was then aspirated, samples which were submitted to microbiology for aerobic and anaerobic culture and sensitivity. Completion CT images documented satisfactory position of the drainage catheter, which was connected to bulb suction, and was secured at the skin exit site utilizing suture and sterile dressing. Patient tolerated the procedure well without apparent complication. Impression: Successful, uneventful CT-guided insertion of 12 Serbian locking pigtail pelvic abscess drainage catheter, as described. PQRS Compliance Statement: One or more of the following individualized dose reduction techniques was utilized for this procedure: 1. Automated exposure control. 2. Adjustment of MA and/or KV according to patient size. 3. Iterative reconstruction technique.
--- NOTE | 2016-04-22 08:27 | PDOC ---
Provider Note Provider Note vss, no temp, drain in after ct puncture- cult pending- will adv diet now , rest same TAYE NG MD Apr 22, 2016 08:27
[2016-04-22] MEDS: METRONIDAZOLE 500mg PREMIX 100 ML IV SCH ×2 (09:07→23:25)
--- NOTE | 2016-04-22 09:48 | PDOC ---
CASSIDY ANSARI VASCULAR NURSE 04/22/16 0948: SURGICAL PROGRESS NOTE Subjective feeling better drain placed, less pain Vital Signs Vital Signs Date Time Temp Pulse Resp B/P Pulse Ox O2 Delivery O2 Flow Rate FiO2 04/22/16 09:06 16 Room Air 04/22/16 07:00 99.0 80 138/91 94 99.0 04/21/16 13:35 2.0 I&O Intake and Output 04/22/16 07:00 Intake Total 580 ml Output Total 55 ml Balance 525 ml Other 580 ml Drainage Total 55 ml # Voids 3 # Bowel Movements 3 General: Alert, Oriented X3, Cooperative, No acute distress Abdomen: Soft, Other (mild tenderness llq, drain serous, cloudy) Labs Laboratory Tests Test 04/21/16 10:46 Prothrombin Time 14.6SEC (11.7-14.0) Prothromb Time International Ratio 1.2 (0.8-1.1) Laboratory Tests Test 04/21/16 10:46 Prothrombin Time 14.6SEC (11.7-14.0) Prothromb Time International Ratio 1.2 (0.8-1.1) Problem List Problems Medical Problems: (1) Acute renal failure Status: Acute (2) Diverticulitis Status: Acute (3) Diverticulitis Status: Acute Assessment/Plan s/p drain placement continue abx Problems: YOVANNY SMALL MD 04/22/16 1247: SURGICAL PROGRESS NOTE Assessment/Plan pt seen and examined agree with above Dr Mcgee to follow over the weekend Problems: CASSIDY ANSARI APRN Apr 22, 2016 09:48 YOVANNY SMALL MD Apr 22, 2016 12:47
[2016-04-22 11:19] VITALS: BP 129/75
[2016-04-22 12:19] LABS: CREATININE 1.5 mg/dL (0.7-1.3); GFR 46.8; POTASSIUM 3.5 mmol/L (3.5-5.1)
[2016-04-22 14:47] VITALS: BP 135/88
[2016-04-22 19:00] VITALS: BP 141/89
[2016-04-22] MEDS: ONDANSETRON ODT 4 MG TAB.RAPDIS PO PRN (21:45)
[2016-04-22 23:00] VITALS: BP 112/74
[2016-04-23] MEDS: HYDROCODONE/APAP 7.5/325MG TABLET. PO PRN ×5 (01:46→20:22)
[2016-04-23 03:00] VITALS: BP 117/81
[2016-04-23] MEDS: ONDANSETRON ODT 4 MG TAB.RAPDIS PO PRN ×3 (05:48→20:21)
[2016-04-23 07:00] VITALS: BP 118/85
[2016-04-23] MEDS: METRONIDAZOLE 500mg PREMIX 100 ML IV SCH ×2 (09:30→20:22)
[2016-04-23 11:00] VITALS: BP 119/80
--- NOTE | 2016-04-23 12:01 | PDOC ---
PROGRESS NOTES Subjective Subjective Some pain, but doing "ok" Objective Objective Vital Signs Date Time Temp Pulse Resp B/P Pulse Ox O2 Delivery O2 Flow Rate FiO2 04/23/16 07:00 98.6 89 18 118/85 87 Room Air 98.6 04/23/16 02:46 4.0 Intake and Output 04/23/16 07:00 Intake Total 1800 ml Output Total 35 ml Balance 1765 ml Intake Oral 1800 ml Drainage Total 35 ml # Voids 1 Physical Exam Abdomen: Soft (tender LLQ with palpation) Heart: Regular rate Extremities: No clubbing, No cyanosis General: Alert, Oriented X3, Cooperative HEENT: Atraumatic Lungs: Clear to auscultation Neuro: Normal speech, Strength at 5/5 X4 ext Psych/Mental Status: Mental status NL Assessment Assessment Problems Medical Problems: (1) Acute renal failure Status: Acute (2) Diverticulitis Status: Acute (3) Diverticulitis Status: Acute Plan Plan of Care Continue IV abx/drainage; FU CT Monday Comment Review of Relevant I have reviewed the following items chiquita (where applicable) has been applied. Labs Laboratory Tests Test 04/22/16 11:45 Sodium Level 142mmol/L (136-145) Potassium Level 3.5mmol/L (3.5-5.1) Chloride Level 103mmol/L (98-107) Carbon Dioxide Level 30mmol/L (21-32) Anion Gap 9 (6-14) Blood Urea Nitrogen 21mg/dL (8-26) Creatinine 1.5mg/dL (0.7-1.3) Estimated GFR (Cockcroft-Gault) 46.8 Glucose Level 140mg/dL (70-99) Calcium Level 9.0mg/dL (8.5-10.1) Microbiology 04/21/16 Anaerobic/Aerobic Culture, Resulted Pending 04/21/16 Anaerobic Culture Result 1 (GADIEL), Resulted Pending 04/21/16 Aerobic Culture - Preliminary, Resulted 04/21/16 Aerobic Culture Result 1 (GADIEL) - Preliminary, Resulted 04/21/16 Gram Stain - Final, Complete Medications Current Medications Morphine Sulfate 4 mg 4 mg PRN Q15MIN PRN IV/SQ PAIN GREATER THAN 3/10 Last administered on 04/18/16t 20:44; Start 04/18/16 at 19:00; Stop 04/18/16 at 23:00 ; Status DC Sodium Chloride (Iv Sodium Chloride 0.9% 1000ml Bag) 1,000 ml @ 1,000 mls/hr Q1H IV Last administered on 04/18/16 19:15; Start 04/18/16 at 19:00; Stop at 19:59; Status DC Ondansetron HCl (Zofran) 4 mg 1X ONCE IV Last administered on 04/18/16 19:15 ; Start 04/18/16 at 19:00; Stop 04/18/16 at 19:01; Status DC Ondansetron HCl (Zofran) 4 mg PRN Q8HRS PRN IV NAUSEA/VOMITING Last administered on 04/19/16 01:26; Start 04/18/16 at 19:00; Stop 04/19/16 at 19:00 ; Status DC Morphine Sulfate 4 mg PRN Q2HR PRN IV PAIN; Start 04/18/16 at 19:00; Stop 04/18 at 21:01; Status DC Acetaminophen 650 mg 650 mg PRN Q4HRS PRN PO FEVER; Start 04/18/16 at 19:00; Stop 04/19/16 at 19:00; Status DC Metronidazole (FLAGYL 500Mmg PREMIX) 100 ml @ 100 mls/hr Q12HR IV Last administered on 04/23/16 09:30; Start 04/18/16 at 19:30 Levofloxacin/ Dextrose 1 each 1 each PRN DAILY PRN MC SEE COMMENTS; Start 04/18 at 19:00 Levofloxacin/ Dextrose 100 ml @ 100 mls/hr 1X ONCE IV Last administered on 19:15; Start 04/18/16 at 19:15; Stop 04/18/16 at 20:14; Status DC Levofloxacin/ Dextrose 50 ml @ 50 mls/hr Q24H IV Last administered on 19:48; Start 04/19/16 at 20:00; Stop 04/22/16 at 13:19; Status DC Sodium Chloride (Iv Sodium Chloride 0.9% 1000ml Bag) 1,000 ml @ 150 mls/hr 1X ONCE IV Last administered on 04/18/16 21:02; Start 04/18/16 at 20:30; Stop at 03:09; Status DC Morphine Sulfate 2 mg PRN Q2HR PRN IV PAIN Last administered on 04/19/16 20:23 ; Start 04/18/16 at 21:15; Stop 04/20/16 at 08:11; Status DC Morphine Sulfate 4 mg 4 mg PRN Q2HR PRN IV PAIN Last administered on 04/19/16 16:40; Start 04/19/16 at 06:30; Stop 04/20/16 at 08:11; Status DC Dextrose/Lactated Ringer's (Iv D5%-Lr) 1,000 ml @ 75 mls/hr [id number] IV Last administered on 04/20/16 20:16; Start 04/19/16 at 09:00; Stop 04/21/16 at 08:49 ; Status DC Acetaminophen/ Hydrocodone Bitart (Lortab 7.5/325) 1 tab PRN Q4HRS PRN PO PAIN Last administered on 04/23/16 09:31; Start 04/19/16 at 20:00 Ondansetron HCl (Zofran Odt) 4 mg PRN Q8HRS PRN PO NAUSEA/VOMITING Last administered on 04/21/16 07:03; Start 04/19/16 at 20:00; Stop 04/21/16 at 08:49 ; Status DC Iohexol (Omnipaque 240 Mg/ml) 30 ml 1X ONCE PO Last administered on 04/20/16 12:29; Start 04/20/16 at 10:15; Stop 04/20/16 at 10:16; Status DC Info (Do NOT chart on this entry -- for MONITORING) 1 each PRN DAILY PRN MC SEE COMMENTS; Start 04/20/16 at 10:15; Stop 04/22/16 at 10:14; Status DC Ondansetron HCl (Zofran Odt) 4 mg PRN QID PRN PO NAUSEA/VOMITING Last administered on 04/23/16 05:48; Start 04/21/16 at 20:00 Lidocaine/Sodium Bicarbonate (Buffered Lidocaine 1%) 20 ml STK-MED ONCE IJ ; Start 04/21/16 at 12:46; Stop 04/21/16 at 12:47; Status DC Naloxone HCl (Narcan) 0.4 mg STK-MED ONCE .ROUTE ; Start 04/21/16 at 12:55; Stop 04/21/16 at 12:56; Status DC Flumazenil (Romazicon) 0.5 mg STK-MED ONCE IV ; Start 04/21/16 at 12:55; Stop at 12:56; Status DC Midazolam HCl (Versed) 5 mg STK-MED ONCE .ROUTE ; Start 04/21/16 at 12:55; Stop 04/21/16 at 12:56; Status DC Fentanyl Citrate (Fentanyl 5ml Vial) 250 mcg STK-MED ONCE .ROUTE ; Start at 12:56; Stop 04/21/16 at 12:57; Status DC Lidocaine/Sodium Bicarbonate (Buffered Lidocaine 1%) 10 ml 1X ONCE IJ Last administered on 04/21/16 13:55; Start 04/21/16 at 14:00; Stop 04/21/16 at 14:02 ; Status DC Midazolam HCl (Versed) 1.5 mg 1X ONCE IV Last administered on 04/21/16 13:55 ; Start 04/21/16 at 14:00; Stop 04/21/16 at 14:02; Status DC Fentanyl Citrate 100 mcg 100 mcg 1X ONCE IV Last administered on 04/21/16 13: 56; Start 04/21/16 at 14:00; Stop 04/21/16 at 14:02; Status DC Levofloxacin/ Dextrose (LEVAQUIN 750mg PREMIX) 150 ml @ 150 mls/hr Q24H IV Last administered on 04/22/16 20:39; Start 04/22/16 at 20:00 Active Scripts Active Hydrocodone-Apap 5-325 (Hydrocodone Bit/Acetaminophen) 1 Each Tablet 1 Tab PO PRN Q6HRS PRN Be careful as this medication may cause you to be drowsy or tired. Do not drive on this medication. Flagyl (Metronidazole) 500 Mg Tablet 1 Tab PO BID Cipro (Ciprofloxacin Hcl) 500 Mg Tablet 1 Tab PO BID Reported Allopurinol 300 Mg Tablet 300 Mg PO DAILY Lisinopril-Hctz 20-12.5 Mg Tab (Lisinopril/Hydrochlorothiazide) 1 Each Tablet 2 Tab PO DAILY Indomethacin 50 Mg Capsule 1 Cap PO DAILY Vitals/I & O Vital Sign - Last 24 Hours 04/22/16 04/22/16 04/22/16 04/22/16 14:47 14:47 19:00 20:00 Temp 98.7 98.2 98.7 98.2 Pulse 64 90 Resp B/P 135/88 141/89 Pulse Ox 93 93 O2 Delivery Room Air Room Air Room Air Room Air 04/22/16 04/22/16 04/23/16 04/23/16 20:20 23:00 01:46 02:46 Temp 99.1 99.1 Pulse 86 Resp B/P 112/74 Pulse Ox 93 95 95 95 O2 Delivery Room Air Room Air Room Air Room Air O2 Flow Rate 4.0 4.0 04/23/16 04/23/16 04/23/16 03:00 05:49 07:00 Temp 98.8 98.6 98.8 98.6 Pulse 80 89 Resp B/P 117/81 118/85 Pulse Ox 95 95 87 O2 Delivery Room Air Room Air Room Air Intake and Output 04/22/16 04/22/16 04/23/16 15:00 23:00 07:00 Intake Total 100 ml 1700 ml Output Total 35 ml Balance 100 ml 1700 ml -35 ml VENKAT CASTANEDA MD Apr 23, 2016 12:01
--- NOTE | 2016-04-23 12:20 | PDOC ---
Provider Note Provider Note vss, no temp, not much in drain- creat down 1.5- cont same, ct 04/25 re abscess TAYE NG MD Apr 23, 2016 12:20
[2016-04-23 15:00] VITALS: BP 116/75
[2016-04-23 19:05] VITALS: BP 111/66
[2016-04-23 23:05] VITALS: BP 101/66
[2016-04-24] MEDS: HYDROCODONE/APAP 7.5/325MG TABLET. PO PRN ×3 (00:23→08:37)
[2016-04-24 03:10] VITALS: BP 116/71
[2016-04-24 07:00] VITALS: BP 123/81
[2016-04-24] MEDS: METRONIDAZOLE 500mg PREMIX 100 ML IV SCH (08:38)
--- NOTE | 2016-04-24 09:29 | PDOC ---
Provider Note Provider Note vss, no temp- feels better , less pain- good po intake- pain is more from drain and neck than LLQ- ct 04/25 TAYE NG MD Apr 24, 2016 09:29
--- NOTE | 2016-04-24 09:58 | PDOC ---
PROGRESS NOTES Subjective Subjective pain improved some Objective Objective Vital Signs Date Time Temp Pulse Resp B/P Pulse Ox O2 Delivery O2 Flow Rate FiO2 04/24/16 08:37 94 Room Air 4.0 04/24/16 07:00 98.3 75 16 123/81 98.3 Intake and Output 04/24/16 07:00 Intake Total 400 ml Balance 400 ml Intake Oral 400 ml # Voids 8 Physical Exam Abdomen: Soft (less tender, no guarding) Heart: Regular rate, Normal S1 Extremities: No clubbing, No cyanosis General: Alert, Oriented X3, Cooperative Neuro: Normal speech Psych/Mental Status: Mental status NL Assessment Assessment Problems Medical Problems: (1) Acute renal failure Status: Acute (2) Diverticulitis Status: Acute (3) Diverticulitis Status: Acute Plan Plan of Care Clinically improving with abx, drainage; FU CT tomorrow Comment Review of Relevant I have reviewed the following items chiquita (where applicable) has been applied. Labs Laboratory Tests Test 04/22/16 11:45 Sodium Level 142mmol/L (136-145) Potassium Level 3.5mmol/L (3.5-5.1) Chloride Level 103mmol/L (98-107) Carbon Dioxide Level 30mmol/L (21-32) Anion Gap 9 (6-14) Blood Urea Nitrogen 21mg/dL (8-26) Creatinine 1.5mg/dL (0.7-1.3) Estimated GFR (Cockcroft-Gault) 46.8 Glucose Level 140mg/dL (70-99) Calcium Level 9.0mg/dL (8.5-10.1) Microbiology 04/21/16 Anaerobic/Aerobic Culture, Resulted Pending 04/21/16 Anaerobic Culture Result 1 (GADIEL), Resulted Pending 04/21/16 Aerobic Culture - Preliminary, Resulted 04/21/16 Aerobic Culture Result 1 (GADIEL) - Preliminary, Resulted 04/21/16 Gram Stain - Final, Complete Medications Current Medications Morphine Sulfate 4 mg 4 mg PRN Q15MIN PRN IV/SQ PAIN GREATER THAN 3/10 Last administered on 04/18/16t 20:44; Start 04/18/16 at 19:00; Stop 04/18/16 at 23:00 ; Status DC Sodium Chloride (Iv Sodium Chloride 0.9% 1000ml Bag) 1,000 ml @ 1,000 mls/hr Q1H IV Last administered on 04/18/16 19:15; Start 04/18/16 at 19:00; Stop at 19:59; Status DC Ondansetron HCl (Zofran) 4 mg 1X ONCE IV Last administered on 04/18/16 19:15 ; Start 04/18/16 at 19:00; Stop 04/18/16 at 19:01; Status DC Ondansetron HCl (Zofran) 4 mg PRN Q8HRS PRN IV NAUSEA/VOMITING Last administered on 04/19/16 01:26; Start 04/18/16 at 19:00; Stop 04/19/16 at 19:00 ; Status DC Morphine Sulfate 4 mg PRN Q2HR PRN IV PAIN; Start 04/18/16 at 19:00; Stop 04/18 at 21:01; Status DC Acetaminophen 650 mg 650 mg PRN Q4HRS PRN PO FEVER; Start 04/18/16 at 19:00; Stop 04/19/16 at 19:00; Status DC Metronidazole (FLAGYL 500Mmg PREMIX) 100 ml @ 100 mls/hr Q12HR IV Last administered on 04/24/16 08:38; Start 04/18/16 at 19:30 Levofloxacin/ Dextrose 1 each 1 each PRN DAILY PRN MC SEE COMMENTS; Start 04/18 at 19:00; Stop 04/24/16 at 09:24; Status DC Levofloxacin/ Dextrose 100 ml @ 100 mls/hr 1X ONCE IV Last administered on 19:15; Start 04/18/16 at 19:15; Stop 04/18/16 at 20:14; Status DC Levofloxacin/ Dextrose 50 ml @ 50 mls/hr Q24H IV Last administered on 19:48; Start 04/19/16 at 20:00; Stop 04/22/16 at 13:19; Status DC Sodium Chloride (Iv Sodium Chloride 0.9% 1000ml Bag) 1,000 ml @ 150 mls/hr 1X ONCE IV Last administered on 04/18/16 21:02; Start 04/18/16 at 20:30; Stop at 03:09; Status DC Morphine Sulfate 2 mg PRN Q2HR PRN IV PAIN Last administered on 04/19/16 20:23 ; Start 04/18/16 at 21:15; Stop 04/20/16 at 08:11; Status DC Morphine Sulfate 4 mg 4 mg PRN Q2HR PRN IV PAIN Last administered on 04/19/16 16:40; Start 04/19/16 at 06:30; Stop 04/20/16 at 08:11; Status DC Dextrose/Lactated Ringer's (Iv D5%-Lr) 1,000 ml @ 75 mls/hr [id number] IV Last administered on 04/20/16 20:16; Start 04/19/16 at 09:00; Stop 04/21/16 at 08:49 ; Status DC Acetaminophen/ Hydrocodone Bitart (Lortab 7.5/325) 1 tab PRN Q4HRS PRN PO PAIN Last administered on 04/24/16 08:37; Start 04/19/16 at 20:00 Ondansetron HCl (Zofran Odt) 4 mg PRN Q8HRS PRN PO NAUSEA/VOMITING Last administered on 04/21/16 07:03; Start 04/19/16 at 20:00; Stop 04/21/16 at 08:49 ; Status DC Iohexol (Omnipaque 240 Mg/ml) 30 ml 1X ONCE PO Last administered on 04/20/16 12:29; Start 04/20/16 at 10:15; Stop 04/20/16 at 10:16; Status DC Info (Do NOT chart on this entry -- for MONITORING) 1 each PRN DAILY PRN MC SEE COMMENTS; Start 04/20/16 at 10:15; Stop 04/22/16 at 10:14; Status DC Ondansetron HCl (Zofran Odt) 4 mg PRN QID PRN PO NAUSEA/VOMITING Last administered on 04/23/16 20:21; Start 04/21/16 at 20:00 Lidocaine/Sodium Bicarbonate (Buffered Lidocaine 1%) 20 ml STK-MED ONCE IJ ; Start 04/21/16 at 12:46; Stop 04/21/16 at 12:47; Status DC Naloxone HCl (Narcan) 0.4 mg STK-MED ONCE .ROUTE ; Start 04/21/16 at 12:55; Stop 04/21/16 at 12:56; Status DC Flumazenil (Romazicon) 0.5 mg STK-MED ONCE IV ; Start 04/21/16 at 12:55; Stop at 12:56; Status DC Midazolam HCl (Versed) 5 mg STK-MED ONCE .ROUTE ; Start 04/21/16 at 12:55; Stop 04/21/16 at 12:56; Status DC Fentanyl Citrate (Fentanyl 5ml Vial) 250 mcg STK-MED ONCE .ROUTE ; Start at 12:56; Stop 04/21/16 at 12:57; Status DC Lidocaine/Sodium Bicarbonate (Buffered Lidocaine 1%) 10 ml 1X ONCE IJ Last administered on 04/21/16 13:55; Start 04/21/16 at 14:00; Stop 04/21/16 at 14:02 ; Status DC Midazolam HCl (Versed) 1.5 mg 1X ONCE IV Last administered on 04/21/16 13:55 ; Start 04/21/16 at 14:00; Stop 04/21/16 at 14:02; Status DC Fentanyl Citrate 100 mcg 100 mcg 1X ONCE IV Last administered on 04/21/16 13: 56; Start 04/21/16 at 14:00; Stop 04/21/16 at 14:02; Status DC Levofloxacin/ Dextrose (LEVAQUIN 750mg PREMIX) 150 ml @ 150 mls/hr Q24H IV Last administered on 04/23/16 20:21; Start 04/22/16 at 20:00; Stop 04/24/16 at 09:24; Status DC Levofloxacin (Levaquin) 500 mg QEVNG PO ; Start 04/24/16 at 18:00 Levofloxacin (Levaquin) 500 mg DAILY06 PO ; Start 04/24/16 at 18:00; Status UNV Acetaminophen/ Hydrocodone Bitart (Lortab 5/325) 1 tab PRN Q4HRS PRN PO PAIN; Start 04/24/16 at 09:30 Ibuprofen (Motrin) 600 mg PRN Q6HRS PRN PO INFLAMMATION; Start 04/24/16 at 09: 30 Active Scripts Active Hydrocodone-Apap 5-325 (Hydrocodone Bit/Acetaminophen) 1 Each Tablet 1 Tab PO PRN Q6HRS PRN Be careful as this medication may cause you to be drowsy or tired. Do not drive on this medication. Flagyl (Metronidazole) 500 Mg Tablet 1 Tab PO BID Cipro (Ciprofloxacin Hcl) 500 Mg Tablet 1 Tab PO BID Reported Allopurinol 300 Mg Tablet 300 Mg PO DAILY Lisinopril-Hctz 20-12.5 Mg Tab (Lisinopril/Hydrochlorothiazide) 1 Each Tablet 2 Tab PO DAILY Indomethacin 50 Mg Capsule 1 Cap PO DAILY Vitals/I & O Vital Sign - Last 24 Hours 04/23/16 04/23/16 04/23/16 04/23/16 11:00 15:00 19:05 20:08 Temp 98.5 98.1 98.6 98.5 98.1 98.6 Pulse 79 82 98 Resp 18 B/P 119/80 116/75 111/66 Pulse Ox 89 92 94 O2 Delivery Room Air Room Air Room Air Room Air 04/23/16 04/23/16 04/24/16 04/24/16 20:22 23:05 00:23 03:10 Temp 98.2 97.9 98.2 97.9 Pulse 82 85 Resp 20 14 20 14 B/P 101/66 116/71 Pulse Ox 92 98 98 97 O2 Delivery Room Air Room Air Room Air Room Air 04/24/16 04/24/16 04/24/16 04/24/16 04:23 05:23 07:00 08:37 Temp 98.3 98.3 Pulse 75 Resp 20 16 B/P 123/81 Pulse Ox 97 94 94 O2 Delivery Room Air Room Air Room Air Room Air O2 Flow Rate 4.0 Intake and Output 04/23/16 04/23/16 04/24/16 15:00 23:00 07:00 Intake Total 400 ml Balance 400 ml VENKAT CASTANEDA MD Apr 24, 2016 09:58
[2016-04-24 11:00] VITALS: BP 81/81
[2016-04-24] MEDS: IBUPROFEN 600 MG TABLET. PO PRN (12:57)
[2016-04-24 15:00] VITALS: BP 114/73
[2016-04-24] MEDS: LEVOFLOXACIN 500 MG TABLET PO SCH (17:38)
[2016-04-24] MEDS ORDERED: LEVOFLOXACIN 500 MG TABLET PO SCH (18:00)
[2016-04-24 19:30] VITALS: BP 127/86
[2016-04-24] MEDS: METRONIDAZOLE 500 MG TABLET. PO SCH (21:38)
[2016-04-24 23:06] VITALS: BP 135/85
[2016-04-25] MEDS: HYDROCODONE/APAP 5/325MG TABLET. PO PRN ×2 (01:16→07:42)
[2016-04-25 03:30] VITALS: BP 128/80
[2016-04-25 07:00] VITALS: BP 125/80
[2016-04-25] MEDS: METRONIDAZOLE 500 MG TABLET. PO SCH ×2 (07:41→21:33)
[2016-04-25] MEDS: IBUPROFEN 600 MG TABLET. PO PRN (07:42)
[2016-04-25] MEDS: ONDANSETRON ODT 4 MG TAB.RAPDIS PO PRN (07:42)
--- NOTE | 2016-04-25 08:31 | PDOC ---
Provider Note Provider Note vss, no temp- abd same- ct today, if good may be able to dc drain , go home, will depend on anatomy of abscess area- will need colonoscopy 6-8 weeks later TAYE NG MD Apr 25, 2016 08:31
--- NOTE | 2016-04-25 09:09 | PDOC ---
CASSIDY ANSARI APRN 04/25/16 0909: SURGICAL PROGRESS NOTE Subjective some nausea most pain is in neck, drain site less abdominal pain Vital Signs Vital Signs Date Time Temp Pulse Resp B/P Pulse Ox O2 Delivery O2 Flow Rate FiO2 04/25/16 07:42 97 Room Air 04/25/16 03:30 98.7 92 18 128/80 98.7 04/24/16 20:00 4.0 I&O Intake and Output 04/25/16 07:00 Intake Total 1552 ml Output Total 25 ml Balance 1527 ml Intake Oral 1450 ml IV Total 102 ml Drainage Total 25 ml # Voids 4 General: Alert, Oriented X3, Cooperative, No acute distress Abdomen: Soft Extremities: Other (ND, NTTP, drain purulent, scant amount) Problem List Problems Medical Problems: (1) Acute renal failure Status: Acute (2) Diverticulitis Status: Acute (3) Diverticulitis Status: Acute Assessment/Plan CT today will FU Problems: YOVANNY SMALL MD 04/25/16 1716: SURGICAL PROGRESS NOTE Assessment/Plan pt seen and examined CT reviewed will ask IR to try and reposition drain tomorrow (I spoke with Dr Jefferson earlier today) d/w Mr Caldera Problems: CASSIDY ANSARI APRN Apr 25, 2016 09:09 YOVANNY SMALL MD Apr 25, 2016 17:16
[2016-04-25] MEDS ORDERED: IOHEXOL 300 MG/ML 75 ML VIAL IV ONE (10:00)
[2016-04-25] MEDS ORDERED: CONTRAST GIVEN MC PRN (10:00)
[2016-04-25] MEDS ORDERED: IOHEXOL 240 MG/ML 50ML VIAL. PO ONE (10:00)
[2016-04-25 11:00] VITALS: BP 123/78
--- NOTE | 2016-04-25 12:24 | RAD ---
EXAM: CT abdomen/pelvis with contrast. HISTORY: Diverticulitis. TECHNIQUE: Computed tomography of the abdomen and pelvis was performed after the intravenous administration of 75 mL Omnipaque 300. COMPARISON: 04/20/2016. FINDINGS: Lung windows through the visualized portions of the bases reveal mild atelectasis. Bone windows reveal no suspicious lesions. There is a bone island in L4. There is a 4.6 x 2.0 cm intramuscular lipoma in the right external oblique musculature. There is a 17 mm soft tissue density nodule within the previously subcutaneous tissues along the left aspect of the mons pubis. A percutaneous drain has its tip in the cul-de-sac. The previously noted fluid collection at that site is significantly smaller. There is a small amount of residual fluid and gas along its superior aspect adjacent to the distal sigmoid colon. It now measures 3.3 x 2.3 cm the portion adjacent to the drain is decompressed. Inflammatory changes about the sigmoid colon are slightly decreased. A small left inguinal hernia contains only fat. There are no pathologically enlarged lymph nodes. The gallbladder is distended without pericholecystic inflammation. The liver, spleen and adrenal glands are unremarkable. There is a 3 cm cyst laterally along the left kidney. Multiple renal calculi bilaterally measuring up to 6 mm at the left lower pole. There are no ureteral calculi. The prostate is moderately enlarged. There is mild diffuse bladder wall thickening. IMPRESSION: 1. The fluid collection within the cul-de-sac and adjacent to the sigmoid colon has decreased in size but not completely resolved status post drainage. Inflammatory changes in the left lower quadrant are improved. 2. Multiple bilateral renal calculi measure up to 6 mm on the right. 3. 17 mm soft tissue density nodule in the subcutaneous tissues along the left aspect of the mons pubis. Correlate clinically for sebaceous cyst. 4. 4.6 cm intramuscular lipoma in the right external obliques. *One or more of the following individualized dose reduction techniques were utilized for this examination: 1. Automated exposure control. 2. Adjustment of the mA and/or kV according to patient size. 3. Use of iterative reconstruction technique.
[2016-04-25 13:15] LABS: BASO % 1 % (0-3); EOS % 3 % (0-3); HEMATOCRIT 33.9 % (39.0-53.0); LYMPH # 1.3 x10^3/uL (1.0-4.8); LYMPH % 18 % (24-48); MEAN CORPUSCULAR HEMOGLOBIN 27 pg (25-35); MEAN CORPUSCULAR HGB CONC 32 g/dL (31-37); MEAN CORPUSCULAR VOLUME 84 fL (79-100); MONO % 8 % (0-9); NEUT % 71 % (31-73); PLATELET COUNT 292 x10^3/uL (140-400); RED BLOOD COUNT 4.05 x10^6/uL (4.30-5.70); RED CELL DISTRIBUTION WIDTH 14.2 % (11.5-14.5); WHITE BLOOD COUNT 7.3 x10^3/uL (4.0-11.0)
[2016-04-25 13:38] LABS: CALCIUM 8.6 mg/dL (8.5-10.1); CREATININE 1.6 mg/dL (0.7-1.3); GFR 43.5
[2016-04-25 15:00] VITALS: BP 133/89
[2016-04-25] MEDS: LEVOFLOXACIN 500 MG TABLET PO SCH (17:11)
[2016-04-25 19:05] VITALS: BP 128/87
[2016-04-25] MEDS: HYDROCODONE/APAP 7.5/325MG TABLET. PO PRN (21:33)
[2016-04-25 23:03] VITALS: BP 125/80
[2016-04-26] VITALS (10 sets, daily range): BP systolic 112–135; BP diastolic 64–94
[2016-04-26] MEDS: IBUPROFEN 600 MG TABLET. PO PRN (00:37)
[2016-04-26] MEDS: METRONIDAZOLE 500 MG TABLET. PO SCH (08:16)
--- NOTE | 2016-04-26 08:41 | PDOC ---
Provider Note Provider Note vss, no temp, feels better- ct noted, for ? drain repo today, home soon as po TAYE Warren MD Apr 26, 2016 08:41
[2016-04-26] MEDS: ONDANSETRON ODT 4 MG TAB.RAPDIS PO PRN (09:20)
--- NOTE | 2016-04-26 10:58 | PDOC ---
SURGICAL PROGRESS NOTE Subjective sleeping, easily awakened no new complaints Vital Signs Vital Signs Date Time Temp Pulse Resp B/P Pulse Ox O2 Delivery O2 Flow Rate FiO2 04/26/16 07:15 Room Air 04/26/16 07:00 97.8 85 18 135/94 94 97.8 04/25/16 08:45 4.0 I&O Intake and Output 04/26/16 07:00 Intake Total 0 ml Balance 0 ml Intake Oral 0 ml # Voids 3 PATIENT HAS A SANTANA: No General: Alert, Oriented X3, Cooperative, No acute distress Abdomen: Soft Labs Laboratory Tests Test 04/25/16 13:05 White Blood Count 7.3x10^3/uL (4.0-11.0) Red Blood Count 4.05x10^6/uL (4.30-5.70) Hemoglobin 11.0g/dL (13.0-17.5) Hematocrit 33.9% (39.0-53.0) Mean Corpuscular Volume 84fL (79-100) Mean Corpuscular Hemoglobin 27pg (25-35) Mean Corpuscular Hemoglobin Concent 32g/dL (31-37) Red Cell Distribution Width 14.2% (11.5-14.5) Platelet Count 292x10^3/uL (140-400) Neutrophils (%) (Auto) 71% (31-73) Lymphocytes (%) (Auto) 18% (24-48) Monocytes (%) (Auto) 8% (0-9) Eosinophils (%) (Auto) 3% (0-3) Basophils (%) (Auto) 1% (0-3) Neutrophils # (Auto) 5.1x10^3uL (1.8-7.7) Lymphocytes # (Auto) 1.3x10^3/uL (1.0-4.8) Monocytes # (Auto) 0.6x10^3/uL (0.0-1.1) Eosinophils # (Auto) 0.2x10^3/uL (0.0-0.7) Basophils # (Auto) 0.0x10^3/uL (0.0-0.2) Sodium Level 138mmol/L (136-145) Potassium Level 4.0mmol/L (3.5-5.1) Chloride Level 103mmol/L (98-107) Carbon Dioxide Level 27mmol/L (21-32) Anion Gap 8 (6-14) Blood Urea Nitrogen 25mg/dL (8-26) Creatinine 1.6mg/dL (0.7-1.3) Estimated GFR (Cockcroft-Gault) 43.5 Glucose Level 124mg/dL (70-99) Calcium Level 8.6mg/dL (8.5-10.1) Laboratory Tests Test 04/25/16 13:05 White Blood Count 7.3x10^3/uL (4.0-11.0) Red Blood Count 4.05x10^6/uL (4.30-5.70) Hemoglobin 11.0g/dL (13.0-17.5) Hematocrit 33.9% (39.0-53.0) Mean Corpuscular Volume 84fL (79-100) Mean Corpuscular Hemoglobin 27pg (25-35) Mean Corpuscular Hemoglobin Concent 32g/dL (31-37) Red Cell Distribution Width 14.2% (11.5-14.5) Platelet Count 292x10^3/uL (140-400) Neutrophils (%) (Auto) 71% (31-73) Lymphocytes (%) (Auto) 18% (24-48) Monocytes (%) (Auto) 8% (0-9) Eosinophils (%) (Auto) 3% (0-3) Basophils (%) (Auto) 1% (0-3) Neutrophils # (Auto) 5.1x10^3uL (1.8-7.7) Lymphocytes # (Auto) 1.3x10^3/uL (1.0-4.8) Monocytes # (Auto) 0.6x10^3/uL (0.0-1.1) Eosinophils # (Auto) 0.2x10^3/uL (0.0-0.7) Basophils # (Auto) 0.0x10^3/uL (0.0-0.2) Sodium Level 138mmol/L (136-145) Potassium Level 4.0mmol/L (3.5-5.1) Chloride Level 103mmol/L (98-107) Carbon Dioxide Level 27mmol/L (21-32) Anion Gap 8 (6-14) Blood Urea Nitrogen 25mg/dL (8-26) Creatinine 1.6mg/dL (0.7-1.3) Estimated GFR (Cockcroft-Gault) 43.5 Glucose Level 124mg/dL (70-99) Calcium Level 8.6mg/dL (8.5-10.1) Problem List Problems Medical Problems: (1) Acute renal failure Status: Acute (2) Diverticulitis Status: Acute (3) Diverticulitis Status: Acute Assessment/Plan perforated diverticulitis for IR eval today, possible repositioning drain Problems: YOVANNY SMALL MD Apr 26, 2016 10:58
[2016-04-26] MEDS ORDERED: MIDAZOLAM HCL/PF 5 MG/5 ML VIAL ONE (11:11)
[2016-04-26] MEDS ORDERED: FENTANYL PF 250 MCG/5 ML VIAL. ONE (11:11)
[2016-04-26] MEDS ORDERED: IOHEXOL 300 MG/ML 50 ML VIAL. ONE (11:16)
[2016-04-26] MEDS ORDERED: LIDOCAINE 1% / SOD BICARB 8.4% 20 ML VIAL. IJ ONE ×2 (11:16→11:45)
[2016-04-26] MEDS ORDERED: FENTANYL PF 250 MCG/5 ML VIAL. IV ONE (11:45)
[2016-04-26] MEDS ORDERED: IOHEXOL 300 MG/ML 50 ML VIAL. IART ONE (11:45)
[2016-04-26] MEDS ORDERED: MIDAZOLAM HCL/PF 5 MG/5 ML VIAL IV ONE (11:45)
--- NOTE | 2016-04-26 12:54 | PDOC ---
Exam Equipment Service Engineer Equipment Service Engineer Li Sales Agent Trading Stamps Sales Agent Trading Stamps B Cates Pre-Procedure Diagnosis Pre-Procedure Diagnosis 65 YO male with diverticular abscess, which is partially drained with indwelling abscess drain, placed with CT guidance on 04/21/16. Persistent un-drained abscess lies above and left of drain, adjacent to Sigmoid colon. Post-Procedure Diagnosis Post-Procedure Diagnosis Same Procedure Performed Procedure Performed Fluoro guided abscess drain injection. Fluoro guided drain replacement, with repositioning within persistent dary- sigmoid component. Type of Anesthesia Type of Anesthesia Local + Mod sedation Estimated Blood Loss EBL: Trace Specimens Specimans 10 cc complex fluid removed (along with injected dilute contrast) and discarded Drain/Tubes Drains/Tubes 12F locking pigtail abscess drain replaced and repositioned into area of dary- sigmoid residual abscess Condition of Patient Condition of Patient Stable. No apparent complication. Disposition Disposition From IR return to [facility]. F/u with Dr Smith and General Surgery. Full report to follow. LADONNA BLAKE MD Apr 26, 2016 12:54
[2016-04-26] MEDS ORDERED: LEVO500T38 PO (14:30)
[2016-04-26] MEDS ORDERED: METR500T4 PO (14:34)
--- NOTE | 2016-04-26 22:56 | DS ---
DATE OF DISCHARGE: 04/26/2016 HOSPITAL COURSE: The patient came in with abdominal pain with no previous history of diverticulitis and her colon problems have had diverticulitis in the low sigmoid area. There was a small evidence of abscess formation and he had drain placement per Dr. Jefferson with good results. He continued IV and oral Flagyl and Cipro at the hospital stay and after drain remanipulation by Dr. Jefferson on the day of dismissal, he is discharged home to be followed. CBC and chemistry profile were all within normal limits. FINAL DIAGNOSES: 1. Acute sigmoid diverticulitis with peridiverticular abscess. 2. Hypertension, stable. OPERATIONS AND PROCEDURES: CT guided transcutaneous drain placement per Dr. Jefferson. CONSULTATIONS: Dr. Jefferson, Dr. Khan. DISPOSITION: Three more days of Flagyl 500 mg twice a day and Cipro 500 mg twice a day, to complete a 2-week. See Dr. Smith in one week, Dr. Khan in 3-5 days regarding drain removal and will need a colonoscopy in 2-3 months. TAYE SMITH MD DR: DALILA/lucas JOB#: [id number] / [id number]
--- NOTE | 2016-04-27 07:36 | RAD ---
Pelvic abscess drain injection Fluoroscopy guided replacement of pelvic abscess drain Indication: 65-year-old male with a partially drained diverticular abscess, status post CT-guided catheter drainage 04/21/2016. The indwelling drain lie centered within rectovesical space. Residual abscess extends superiorly and to the left, to lie adjacent to sigmoid colon. Attempted drain repositioning to lie within the residual abscess has been requested by general surgery. Fluoroscopy time: 2.7 minutes Kerma-area Product: 43 Gycm2 Contrast material: 10 cc Omnipaque 300 Anesthesia: 16 minutes moderate sedation was provided utilizing a total of 2 mg Versed and 50 mcg fentanyl, IV. The patient was appropriately monitored by a qualified independent observer throughout the time of moderate sedation. Consent: The procedure was explained in its entirety to the patient and/or the patient's designated accounts payable representative by a member of the treatment team. This included a discussion of risks and benefits and commonly accepted alternatives to the procedure, as well as expected consequences of no treatment at all. Discussion of risks included, but was not limited to, those that are most frequent and those that are rare, but possibly severe or life-threatening, as well as the possibility of unforeseen complications. Procedure: Informed consent was obtained from the patient. He was placed in the prone RPO position on the angiography table. Right gluteal region was prepped and draped in the usual sterile fashion. Using aseptic technique, a small amount of dilute Omnipaque 300 was slowly injected through the indwelling abscess drain under fluoroscopic guidance. There was resulting contrast opacification of an irregular abscess cavity extending from the drainage catheter occupying rectovesical space superiorly and left laterally toward sigmoid colon. The indwelling [place] locking pigtail abscess drain was then divided and was removed over a 0.035 inch guidewire, which was directed into the residual perisigmoid abscess. A new [place] locking pigtail drainage catheter was then advanced through the same transgluteal tract over the guidewire and was coiled within the residual perisigmoid abscess cavity. Satisfactory drain position was confirmed with several fluoroscopic spot images in multiple projections. The new drainage catheter was then connected to bulb suction, and was secured at the skin exit site utilizing suture and sterile dressing. Patient tolerated the procedure well without apparent complication. Impression: Successful, uneventful fluoroscopy guided replacement of abscess drainage catheter, successfully repositioned within residual perisigmoid abscess cavity.
== END 2016-04-26 16:20 | disposition home or self-care (01) | DRG 392 ==
LOC: ER 16:37 → 4 NORTH 19:06
PROVIDERS: ADMIT Family Medicine; ATTEND Family Medicine
PROC: 0W9J3ZZ Drainage of Pelvic Cavity, Percutaneous Approach (ICD-10-PCS; principal; 2016-04-22)
PROC: 0W2JX0Z Change Drainage Device in Pelvic Cavity, External Approach (ICD-10-PCS; 2016-04-26)
DX: K57.20 Diverticulitis of large intestine with perforation and abscess without bleeding (principal); N17.9 Acute kidney failure, unspecified; I12.9 Hypertensive chronic kidney disease with stage 1 through stage 4 chronic kidney disease, or unspecified chronic kidney disease; E86.0 Dehydration; I95.9 Hypotension, unspecified; M1A.9XX0 Chronic gout, unspecified, without tophus (tophi); N18.3 Chronic kidney disease, stage 3 (moderate); Z87.442 Personal history of urinary calculi; Z90.2 Acquired absence of lung [part of]
CPT/HCPCS: 36415; 49406; 49423; 49424; 74176; 74177; 75984; 76080; 80048; 80076; 81001; 83605; 83690; 83880; 84484; 85007; 85027; 85610; 87071; 87075; 87205; 93005; 96361; 96365; 96375; A4215; C1729; C1892; J1956; J2250; J2270; J2405; J3010; J3490; J7030; Q0162; Q9966; Q9967; 99285-25

== ENCOUNTER → 2016-11-08 | Outpatient (CLI) | payer MEDICARE, OTHER ==
[2016-04-26 14:10] VITALS: BP 131/80
[~2016-11-08] MED LIST changes: +ALLO300T PO; -HYDR-2666 PO; +HYDR-2758 PO; +INDO50CA PO; +LEVO500T59 PO; +LISI1TAB5 PO; +METR500T8 PO
--- NOTE | 2016-11-08 15:31 | KCIC ---
CERVICAL SPINE 5V History: Spondylosis of the cervical spine without myelopathy, chronic neck pain worse the last 1.5 weeks Findings: 6 views of the cervical spine are submitted. There are no previous exams available for comparison. There is more advanced degenerative disc disease C5-C6, to lesser degree at C4-5, C3-4, C6-7. There is spondylosis greatest at C5-6. Cervical vertebral body stature is overall adequate. AP alignment is within normal limits. There is multilevel cervical facet degenerative change. There is adequate alignment of the lateral masses C1 relative to C2. There is apparently some narrowing of the bilateral C5-6 and C6-7 neural foramina in part from uncovertebral degenerative change. Impression: 1. There is multilevel cervical degenerative disc disease and spondylosis greatest C5-6. There is narrowing of the C5-C6 and C6-7 neural foramina in part from uncovertebral degenerative change. There is also multilevel cervical facet degenerative change. Electronically signed by: Anish Hector MD (11/08/2016 3:27 PM) [id number]
== END | disposition home or self-care (01) ==
LOC: KCIC 14:29
PROVIDERS: ATTEND Physician Assistant Medical
DX: M47.812 Spondylosis without myelopathy or radiculopathy, cervical region (principal); M50.323 Other cervical disc degeneration at C6-C7 level; M50.322 Other cervical disc degeneration at C5-C6 level; M50.321 Other cervical disc degeneration at C4-C5 level
CPT/HCPCS: 72050

== ENCOUNTER → 2016-11-23 | Outpatient (CLI) | payer MEDICARE ==
[2016-04-26 14:10] VITALS: BP 131/80
--- NOTE | 2016-11-23 13:33 | KCIC ---
MRI of the cervical spine without contrast 11/23/2016 CLINICAL HISTORY: Chronic neck pain worsening for the last few weeks. TECHNIQUE: Unenhanced T1-weighted, T2-weighted and inversion recovery sagittal and gradient echo and T2-weighted axial images of the cervical spine were obtained. FINDINGS: Comparison is made to the patient's radiographs of the cervical spine dated 11/08/2016. Mild lateral curvature of the cervical spine is seen convex to the right. There is straightening of the normal cervical lordosis. Degenerative signal changes are seen involving all of the disks of the cervical spine. Degenerative signal changes are seen within the marrow surrounding these discs. No area of abnormal signal intensity is seen involving the cervical spinal cord. At the C2-3 disc space there is a mild generalized disc bulge. Degenerative changes are seen involving the uncovertebral and facet joints bilaterally. These findings do not result in significant central spinal canal or neural foraminal stenosis. At the C3-4 disc space there is a mild to moderate generalized disc bulge. Degenerative changes are seen involving the uncovertebral and facet joints bilaterally. These findings efface the anterior and posterior CSF resulting in mild central spinal canal stenosis with minimal cord impingement. Mild bilateral neural foraminal stenosis is seen. At the C4-5 disc space there is a mild generalized disc bulge. Degenerative changes are seen involving the uncovertebral and facet joints bilaterally. These findings do not result in significant central spinal canal or neural foraminal stenosis. At the C5-6 disc space there is a mild to moderate generalized disc bulge. This is eccentric to the right. Degenerative changes are seen involving the uncovertebral and facet joints bilaterally. These findings when combined efface the anterior and posterior CSF resulting in mild central spinal canal stenosis without evidence of cord impingement. Mild bilateral neural foraminal stenosis is seen. At the C6-7 disc space there is a mild generalized disc bulge. Degenerative changes are seen involving the uncovertebral and facet joints bilaterally. These findings do not result in significant central spinal canal stenosis. Mild bilateral neural foraminal stenosis is seen. At the C7-T1 disc space there is a mild generalized disc bulge. Degenerative changes are seen involving the facet joints bilaterally. These findings do not result in significant central spinal canal or neural foraminal stenosis. IMPRESSION: Degenerative changes are seen throughout the cervical spine. These findings result in mild central spinal canal stenosis with minimal cord impingement at C3-4 and mild central spinal canal stenosis without evidence of cord impingement at C5-6. Mild bilateral neural foraminal stenosis is seen at C3-4, C5-6 and C6-7. Electronically signed by: João Brown MD (11/23/2016 1:29 PM) [email or web address]
== END | disposition home or self-care (01) ==
LOC: KCIC MRI 09:58
PROVIDERS: ATTEND Physician Assistant Medical
DX: M47.812 Spondylosis without myelopathy or radiculopathy, cervical region (principal); G89.29 Other chronic pain; M48.02 Spinal stenosis, cervical region; M50.30 Other cervical disc degeneration, unspecified cervical region
CPT/HCPCS: 72141

== ENCOUNTER → 2016-12-06 | Outpatient (CLI) | payer MEDICARE ==
[2016-04-26 14:10] VITALS: BP 131/80
[~2016-12-06] MED LIST changes: +CELE200C PO; +IOHEXOL 180 MG/ML 10 ML VIAL. ONE; +methylPREDNISolone ACETATE 40 MG/ML VIAL. ONE; +methylPREDNISolone ACETATE 80 MG/ML VIAL. ONE
--- NOTE | 2016-12-06 14:25 | PAIN ---
DATE OF SERVICE: 12/06/2016 INITIAL CONSULTATION FOR PAIN CLINIC. CHIEF COMPLAINT: Neck and right upper extremity pain. HISTORY OF PRESENT ILLNESS: This is a 66-year-old male who presents with history of pain in the base of the neck and bilateral shoulders, worse on the left than the right, radiating into the right arm, with tingling in the index finger and thumb on the right side. The patient reports this has been going on for at least 20 years or longer and it has been worse over the past one month. The patient is having massage therapy done; he has had that done consistently for the last several years, which he feels does help, also some chiropractic treatment, which is helpful as well and he had some trigger point injections he reports many years ago at an outside facility, which helped temporarily. The patient was taking indomethacin as well as Celebrex. Now, he is just on the Celebrex, which he reports does help the pain about 40% to 50%. The patient reports it is not a result of any specific injury or accident he is aware of, gradually increased, but can have times when it grabs and causes severe stabbing, sharp pain in the base of the neck, worse on the left side than the right and mostly posteriorly. The patient reports that it can be constant. It is stiffness in the morning, it is worse with throbbing, aching pain, shooting and tingling into the right hand and fingers as noted. The patient reports it awakes him from sleep about 4-5 times at night over the past month. He has to lie specifically on his left side and very slowly turn or the pain increases and awakens him. The patient reports it does not affect his bowel or bladder control or his ability to walk. He reports his disability rating from 0 to 10, 10 being the worst, is at 2 with family, home responsibilities and self-care; 7 with recreation; 3 with social activity and one with life support activities. The patient did have an MRI scan of the cervical spine dated 11/23/2016, showing degenerative changes throughout the cervical spine, resulting in mild central spinal canal stenosis with minimal cord impingement at C3-C4, mild central spinal canal stenosis without evidence of cord impingement at C5-C6 and mild bilateral neural foraminal stenosis at C3-C4, C5-C6 and C6-C7. The patient reports no loss of motor function, but some fatigability in the right hand and arm, but only with repetitive motions. The patient reports the pain is most noticeable with changing positions, turning his head, mostly to the left with reaching his arms over his head on the right side. It can be painful as well such as getting dressed and driving the car. PAST MEDICAL HISTORY: Significant for hypertension, arthritis, gout, diverticulitis and prostatic hypertrophy. PAST SURGICAL HISTORY: Previous surgeries included colon resection in 2016 in April due to perforation and a right knee scope in the past. CURRENT MEDICATIONS: Include allopurinol, lisinopril, Celebrex, ciprofloxacin, hydrocodone and Flagyl. ALLERGIES: The patient has no known drug allergies. FAMILY HISTORY: Significant for no major medical problems or conditions he is aware of. SOCIAL HISTORY: The patient does not smoke; drinks about 2 drinks alcohol occasionally, maybe once a month; is single and lives locally in [place], [place]. REVIEW OF SYSTEMS: The patient's review of systems is positive for those items mentioned in the history of present illness. All systems were reviewed and otherwise negative. It is complete, full and well documented on the patient's chart. PHYSICAL EXAMINATION: VITAL SIGNS: Today, the patient's blood pressure is 144/100, pulse is 75, respirations 18 and temperature is 98.0 degrees Fahrenheit. Height is 5 feet 8 inches, weight is 195 pounds. GENERAL: The patient is awake, alert, oriented, appropriate and has a very pleasant demeanor. HEENT EXAMINATION: Head shows normocephalic, atraumatic. Extraocular movements are intact and symmetrical. The patient wears eyeglasses. Oral cavity, mucous membranes are moist and pink. Dentition is intact. NECK: Shows anterior throat supple, without palpable lymphadenopathy noted. Swallow reflex is symmetrical. CHEST: Shows normal with inspection. Breath sounds are clear to auscultation bilaterally. HEART: Shows S1 and S2 clear. No murmurs auscultated. ABDOMEN: Soft, obese, nontender and nondistended. Well-healed surgical scarring is noted. No rebound or guarding demonstrated. BACK: Shows spine grossly in the midline. Normal-appearing cervical lordotic curvature, thoracic kyphotic curvature and lumbar lordotic curvature. No previous bruises, lesions, rashes or scars are noted. With inspection of the cervical paraspinous muscle, it shows symmetrical. On inspection with palpation, it shows some moderate tenderness with palpation in the middle and lower distribution on the left side and superior medial trapezius on the left as well, without asymmetry, without trigger points or radiation. Right side is only very minimally tender. No tenderness over the spinous processes. The patient shows good rotation of motion; however, well past 45 degrees, right and left lateral rotation close to 90 degrees without difficulty. Full extension and full forward flexion without pain reported as well, difficulty in rotation. EXTREMITIES: The patient's upper extremities show deep tendon reflexes at 2+ in the biceps and triceps tendons. Motor exam is approximately 4 on a scale of 5 with right gray mixing operator strength and 5/5 on the left. The patient does have a hypertrophied distal flange on the right index finger. Peripheral pulses are 2+ radial distribution. No peripheral edema is noted. No clubbing, no cyanosis. Upper extremities are warm and dry to touch, equal in color and appearance. Shoulder shrug is strong and intact, without loss of strength and resistance as is abduction of the shoulder to 90 degrees without loss of strength and resistance as well pain reported very mildly on the left side, but again without resistance in his left side base of the neck. IMPRESSION: 1. This is a 66-year-old male with long history of pain in the base of the neck, radiating to the right upper extremity, worse over the past one month. 2. MRI scan of the cervical spine as noted. 3. Hypertension. 4. Arthritis. PLAN: Options were discussed with the patient including conservative medical management, physical therapy and interventional techniques. As he is doing massage therapy and stretching on his own, he would like to pursue interventional techniques. We discussed a cervical epidural steroid injection using description as well as models to describe the procedure. Risks were then discussed including, but not limited to bleeding, infection, possibility of epidural hematoma and subsequent neurological compromise, dural puncture, headaches, spinal cord and/or nerve damage, side effects of steroid medication and poor results regarding pain control. The patient understands and wishes to proceed. The patient will return to clinic in approximately 2 weeks for followup. He was counseled on return appointment, activity level and side effects to be aware of. DIAGNOSES: Cervical radiculopathy with cervical spinal stenosis and cervical degenerative disk disease. PROCEDURE: Cervical epidural steroid injection in translaminar approach at C6-C7 using C-arm fluoroscopic guidance after sterile prep and drape using local anesthetic. MEDICATION INJECTED: A total of 120 mg Depo-Medrol plus 5 mL of preservative-free normal saline and 2 mL of Isovue for contrast. CONDITION AT DISCHARGE: Stable. The patient tolerated procedure well. He had no complications. ELIZABETH ACUNA MD DR: KRISTY/lucas JOB#: [id number] / [id number] Dr. Maximiliano Ruggiero
== END | disposition home or self-care (01) ==
LOC: PNCL 10:34
PROVIDERS: ATTEND Anesthesiology
DX: M50.123 Cervical disc disorder at C6-C7 level with radiculopathy (principal); M48.02 Spinal stenosis, cervical region; I10 Essential (primary) hypertension; M19.90 Unspecified osteoarthritis, unspecified site; M10.9 Gout, unspecified
CPT/HCPCS: 62321; J1030; J1040

== ENCOUNTER → 2016-12-20 | Outpatient (CLI) | payer MEDICARE ==
[2016-04-26 14:10] VITALS: BP 131/80
[~2016-12-20] MED LIST changes: -IOHEXOL 180 MG/ML 10 ML VIAL. ONE; -methylPREDNISolone ACETATE 40 MG/ML VIAL. ONE; -methylPREDNISolone ACETATE 80 MG/ML VIAL. ONE
--- NOTE | 2016-12-20 12:49 | PN ---
DATE: 12/20/2016 PROGRESS NOTE FOR PAIN CLINIC. DIAGNOSES: Cervical radiculopathy with cervical degenerative disk disease and cervical spinal stenosis. HISTORY OF PRESENT ILLNESS: The patient, a 66-year-old male, returns for followup status post cervical epidural steroid injection x 1. The patient reports about 50% improvement. It took about 3-4 days to really feel better after the injection, but after that time, the patient reports mobility has been much better, especially turning his head to the left side and has had very good response since then. The patient reports he is happy with the way his neck feels now and he is doing well with the daily activities and sleeping well at night, but it awakens him from sleep occasionally, but not every night like it was in the past. The patient reports the pain is a 5 on a scale of 10 at its worse, it is a 2 on average and it is 1 today. The patient reports it as aching and tight feeling in the neck, but he has been able to stretch it out, put some heat on it. He has been using some VapoRub-type medication on the neck as well, which seems to help. The patient reports no new motor or sensory deficits. No new complaints. PHYSICAL EXAMINATION: VITAL SIGNS: Today, the patient's blood pressure is 137/87, pulse 84, respirations are 18 and temperature is 98.0 degrees Fahrenheit. Height is 5 feet 8 inches, weight is 194 pounds. GENERAL: The patient is awake, alert, oriented, appropriate. He has a very pleasant demeanor. HEENT: Head shows normocephalic, atraumatic. Extraocular movements intact and symmetrical. Oral cavity, mucous membranes are moist and pink. Dentition is intact. NECK: Shows anterior throat supple, without palpable lymphadenopathy noted. Swallow reflex is symmetrical. CHEST: Shows normal on inspection. Breath sounds are clear to auscultation bilaterally. HEART: Shows S1 and S2 clear. ABDOMEN: Soft, nontender and nondistended. No palpable organomegaly is noted. BACK: Shows spine grossly in the midline. Cervical lordotic curvature is normal in appearance. With inspection, cervical paraspinous musculature is symmetrical bilaterally, without atrophy or hypertrophy. There is some minor tenderness with palpation, but only in the base of the left cervical paraspinous muscles in the left trapezius superomedially, without trigger points, without radiation. The patient shows full rotational motion of the cervical spine well past 45 degrees closer to 90 degrees, right and left lateral as well as full extension, full forward flexion without difficulty. EXTREMITIES: Upper extremities show deep tendon reflexes at 2+ in the biceps and triceps tendons. Motor exam is approximately 4 on a scale of 5, with right cutter grinder operator strength once again and 5/5 on the left as on previous exam, but biceps and triceps flexion are equal and 5/5 bilaterally. Peripheral pulses are 2+ radial distribution. Options were discussed with the patient. The patient's old chart was reviewed as his current medication regimen updated. Current review of systems updated today as well. We will hold on any further injections as he is very pleased with his progress thus far and would like to wait on any further injections. I have encouraged him to increase his activity as tolerated and also strengthening and stretching exercises with the neck and mobility increase as tolerated. The patient will follow up on an as-needed basis at this time. ELIZABETH ACUNA MD DR: KRISTY/lucas JOB#: [id number] / [id number]
== END | disposition home or self-care (01) ==
LOC: PNCL 09:52
PROVIDERS: ATTEND Anesthesiology
DX: M50.10 Cervical disc disorder with radiculopathy, unspecified cervical region (principal); M48.02 Spinal stenosis, cervical region
CPT/HCPCS: G0463

== ENCOUNTER → 2017-09-22 | Outpatient (CLI) | payer MEDICARE | END | disposition home or self-care (01) | LOC: NM 10:23 | DX: M89.9 Disorder of bone, unspecified (principal); I12.9 Hypertensive chronic kidney disease with stage 1 through stage 4 chronic kidney disease, or unspecified chronic kidney disease; N18.3 Chronic kidney disease, stage 3 (moderate) | CPT/HCPCS: 78306; 96374; A9503 ==

== ENCOUNTER → 2018-05-01 | Outpatient (CLI) | payer MEDICARE ==
[2016-04-26 14:10] VITALS: BP 131/80
[~2018-05-01] MED LIST changes: +DOCU-109 PO; -HYDR-2758 PO; +HYDR-2761 PO; -INDO50CA PO; +INDO50CA5 PO; +METH750T2 PO; +METR-34 PO; -METR500T8 PO; +TAMS0.4C97 PO
--- NOTE | 2018-05-01 12:23 | KCIC ---
MRI Cervical Spine Without Contrast History: Chronic neck pain, cervical radiculitis, bilateral upper extremity numbness for one month Technique: Multiplanar, multi sequential noncontrast MR imaging was performed of the cervical spine. Comparison: November 23, 2016 Findings: There is some motion degradation, somewhat limits accurate evaluation of the neural foramina especially on axial images. There is new grade 1 anterior spondylolisthesis C3-C4, again minimal grade 1 spondylolisthesis C7-T1. There is minimal posterior subluxation C5 relative to C6 as seen previously. There is advanced degenerative disc disease C5-C6 and C3-4 and to lesser degree at C4-5 and C6-7, progressed at C3-4 in the interval. There is somewhat increased C3-4 endplate edema, also C5-6 and very mild C6-7 endplate edema likely reactive/degenerative in etiology. There is a greater degree of mild inferior endplate concavity of C3, otherwise vertebral body stature is unchanged. There is new increased T2 and STIR signal of the cord at the superior aspect of C4 left greater than right. C2-C3: There is right facet degenerative change. Spinal canal and neural foramina are adequate. C3-C4: There is buckling of the ligament flavum and facet hypertrophic change. There is now partial uncovering of the posterior aspect of the disc due to spondylolisthesis and superimposed bulge. There is increased spinal stenosis, central canal narrowed to about 5 to 6 mm with increased effacement of ventral and dorsal subarachnoid space. There is likely moderate to severe neural foramina compromise bilaterally. C4-C5: There is negligible disc osteophyte complex. Central canal is adequate about 12 mm. There is left greater than right facet degenerative change. Neural foramina are adequate. C5-C6: There is disc osteophyte complex and minimal bulge, central canal minimally narrowed to about 9 mm as measured on sagittal images. There is facet degenerative change, also right uncovertebral degenerative change. There is likely mild to moderate left and at least moderate right neural foramina compromise. C6-C7: There is minimal disc osteophyte complex and bulge, central canal adequate about 11 mm. There is facet degenerative change also left greater than right uncovertebral degenerative change. Neural foramina are somewhat to poorly characterized due to motion, probable moderate to severe left and possible mild right neural foramina compromise. C7-T1: Spinal canal and neural foramina are adequate. There is facet degenerative change. Impression: 1. Compared with previous 2017 exam, there is now grade 1 anterior spondylolisthesis C3-4, also increased spinal stenosis at this level with narrowing of the central canal about 5 to 6 mm with effacement of ventral and dorsal subarachnoid space, also new abnormal cord signal at the level of the superior aspect of C4 which may be due to cord edema or myelomalacia. 2. Neural foramina are somewhat poorly characterized due to motion, suspected multilevel neural foramina compromise greatest bilaterally at C3-C4 and on the left at C6-7, lesser degree of narrowing bilaterally at C5-C6. 3. There is multilevel abnormal alignment as stated. 4. There is multilevel degenerative disc disease greatest C3-4 and C5-6 and to lesser degree C4-5 and C6-7. Electronically signed by: Anish Hector MD (05/01/2018 12:20 PM) [email or web address]
== END | disposition home or self-care (01) ==
LOC: KCIC MRI 11:07
PROVIDERS: ATTEND Physical Medicine & Rehabilitation
DX: M50.11 Cervical disc disorder with radiculopathy, high cervical region (principal); M48.02 Spinal stenosis, cervical region; M43.12 Spondylolisthesis, cervical region; M25.78 Osteophyte, vertebrae
CPT/HCPCS: 72141

== ENCOUNTER → 2018-05-25 | Outpatient (CLI) | payer MEDICARE ==
[2016-04-26 14:10] VITALS: BP 131/80
--- NOTE | 2018-05-25 14:15 | EKG ---
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
[2018-05-25 14:30] LABS: BASO % 1 % (0-3); EOS # 0.1 x10^3/uL (0.0-0.7); EOS % 2 % (0-3); HEMATOCRIT 40.3 % (39.0-53.0); HEMOGLOBIN 13.4 g/dL (13.0-17.5); LYMPH # 1.7 x10^3/uL (1.0-4.8); LYMPH % 30 % (24-48); MEAN CORPUSCULAR HEMOGLOBIN 28 pg (25-35); MEAN CORPUSCULAR HGB CONC 33 g/dL (31-37); MEAN CORPUSCULAR VOLUME 83 fL (79-100); MONO # 0.4 x10^3/uL (0.0-1.1); MONO % 8 % (0-9); NEUT # 3.5 x10^3uL (1.8-7.7); NEUT % 61 % (31-73); PLATELET COUNT 213 x10^3/uL (140-400); RED BLOOD COUNT 4.83 x10^6/uL (4.30-5.70); RED CELL DISTRIBUTION WIDTH 14.5 % (11.5-14.5); WHITE BLOOD COUNT 5.7 x10^3/uL (4.0-11.0)
[2018-05-25 14:36] LABS: ALBUMIN 3.7 g/dL (3.4-5.0); CALCIUM 9.1 mg/dL (8.5-10.1); CREATININE 1.6 mg/dL (0.7-1.3); GFR 43.2; POTASSIUM 3.5 mmol/L (3.5-5.1); TOTAL BILIRUBIN 0.4 mg/dL (0.2-1.0); TOTAL PROTEIN 7.4 g/dL (6.4-8.2)
--- NOTE | 2018-05-29 18:35 | NUR ---
FAXED CMP REPORT TO 'S OFFICE FOR REVIEW 05/28/2018 AT 1137. TALKED TO BALDO VALLE APRN AT 05/29/2018 1145 RE:BUN/CREA SLIGHTLY ELEVATED AND SHE SAID SHE REVIEWED IT AND IT WAS OKAY. EKG REPORT WAS REVIEWED 05/28/2018 AT 1200 BY NILSA CADET RN WITH ANESTHESIA TEAM AND IT WAS OKAY HE SAID.
== END | disposition home or self-care (01) ==
LOC: SURGPAT 13:33
PROVIDERS: ATTEND Neurological Surgery
DX: M48.02 Spinal stenosis, cervical region (principal); G95.89 Other specified diseases of spinal cord; I44.4 Left anterior fascicular block
CPT/HCPCS: 36415; 80053; 85025; 87641; 93005

== ENCOUNTER 2018-06-01 16:12 | Emergency (ER) | payer MEDICARE ==
[~2018-06-01] VITALS: Ht 170.2 cm; Wt 80.7 kg
[2018-06-01 16:20] VITALS: BP 163/107
[2018-06-01 17:20] LABS: BILIRUBIN,URINE NEGATIVE (NEG); CLARITY,URINE CLEAR; COLOR,URINE YELLOW; NITRITE,URINE NEGATIVE (NEG); PH,URINE 5.5; PROTEIN,URINE NEGATIVE (NEG-TRACE); UROBILINOGEN,URINE 0.2 mg/dL (0.2 mg/dL)
--- NOTE | 2018-06-01 17:28 | PHYS DOC ---
Past Medical History Past Medical History: Diverticulitis, Hypertension, Kidney Stone Additional Past Medical Histor: gout Past Surgical History: Other Additional Past Surgical Histo: kidney stones, neck bone spurs, diverticulitis sx Alcohol Use: Occasionally Drug Use: None Adult General Chief Complaint Chief Complaint: URINARY RETENTION HPI HPI Patient is a 67 year old male who presents to the ED to be related for urinary retention, patient states yesterday he had neck surgery, he states he was unable to void postop, he states they had to straight catheter him twice postop , once last night and one time this morning. He states the last administered Was at 3 AM. They sent him home this morning, he has been unable to void since then. He states they also started him on Flomax. He states he called his doctor and they requested he comes to the ED for Arevalo placement and then follow up with the urologist on Monday for removal and bladder training. Review of Systems Review of Systems Constitutional: Denies fever or chills [] Eyes: Denies change in visual acuity, redness, or eye pain [] HENT: Denies nasal congestion or sore throat [] Respiratory: Denies cough or shortness of breath [] Cardiovascular: No additional information not addressed in HPI [] GI: Denies abdominal pain, nausea, vomiting, bloody stools or diarrhea [] : Reports inability to urinate. Denies dysuria or hematuria [] Musculoskeletal: Denies back pain or joint pain [] Integument: Denies rash or skin lesions [] Neurologic: Denies headache, focal weakness or sensory changes [] All other systems were reviewed and found to be within normal limits, except as documented in this note. Allergies Allergies Allergies Coded Allergies Type Severity Reaction Last Updated Verified adhesive tape Allergy Intermediate Rash 05/31/18 Yes latex Allergy Intermediate Rash 05/31/18 Yes Physical Exam Physical Exam Constitutional: Well developed, well nourished, no acute distress, non-toxic appearance. [] HENT: Normocephalic, atraumatic, bilateral external ears normal, oropharynx moist, no oral exudates, nose normal. [] Eyes: PERRLA, EOMI, conjunctiva normal, no discharge. [] Neck: Limited range of motion due to surgery, soft collar noted, no tenderness, supple, no stridor. [] Cardiovascular:Heart rate regular rhythm, no murmur [] Lungs & Thorax: Bilateral breath sounds clear to auscultation [] Abdomen: Bladder feels distended. Bowel sounds normal, soft, no tenderness, no masses, no pulsatile masses. [] Skin: Warm, dry, no erythema, no rash. [] Back: No tenderness, no CVA tenderness. [] Extremities: No tenderness, no cyanosis, no clubbing, ROM intact, no edema. [] Neurologic: Alert and oriented X 3, normal motor function, normal sensory function, no focal deficits noted. [] Psychologic: Affect normal, judgement normal, mood normal. [] Current Patient Data Vital Signs Vital Signs Date Time Temp Pulse Resp B/P (MAP) Pulse Ox O2 Delivery O2 Flow Rate FiO2 06/01/18 16:20 98.9 104 19 163/107 (125) 97 Room Air 98.9 EKG EKG [] Radiology/Procedures Radiology/Procedures [] Course & Med Decision Making Course & Med Decision Making Pertinent Labs and Imaging studies reviewed. (See chart for details) This is a 67-year-old male patient presented to the ED today with urinary retention post op. Patient had neck surgery yesterday. Has not been able to void since then. He was last straight cath at 3 AM before being discharged this morning. Arevalo catheter was placed. 1000 mL return. Patient was discharged to home with a Arevalo catheter. Follow-up with the urologist on Monday. He was already started on Flomax. Dragon Disclaimer Dragon Disclaimer This electronic medical record was generated, in whole or in part, using a voice recognition dictation system. Departure Departure Impression: Primary Impression: Urinary retention Disposition: 01 HOME, SELF-CARE Condition: STABLE Referrals: TAYE NG MD (PCP) CIRO ZHOU MD follow up next week on Monday Patient Instructions: Urinary Retention, Acute, Male Additional Instructions: We placed a Arevalo catheter. Contact the urologist provided and follow-up on Monday next week for catheter removal and bladder training. Continue taking Flomax every day. MONO AVINA APRN Jun 01, 2018 17:28
[2018-06-01 17:32] LABS: BACTERIA,URINE 0 /HPF (0-FEW); SQUAMOUS EPITHELIAL CELL,UR OCC /LPF; WBC,URINE OCC /HPF (0-4)
== END 2018-06-01 17:30 | disposition home or self-care (01) ==
LOC: ER 16:12
DX: R33.9 Retention of urine, unspecified (principal); I10 Essential (primary) hypertension; Z91.040 Latex allergy status; Z88.8 Allergy status to other drugs, medicaments and biological substances
CPT/HCPCS: 51702; 81001; 99284-25

== ENCOUNTER → 2018-06-08 | Outpatient (CLI) | payer MEDICARE ==
[2018-06-01 16:20] VITALS: BP 163/107
--- NOTE | 2018-06-08 15:19 | RAD ---
Cervical spine, 2 views, 06/08/2018: HISTORY: Dysphasia after cervical surgery Comparison is made to a study from 11/08/2016. An anterior fixation plate has been placed at C3-4 attached to those 2 vertebral bodies via 2 screws at each level. A partially radiopaque disc spacer has been placed at that level. There is now slight anterolisthesis at this level with mild widening of the facet joints. There are moderate degenerative changes involving multiple facet joints bilaterally. Moderate disc space narrowing and spurring is present at C4-5, C5-6 and C6-7. No fracture is evident. There is mild prevertebral soft tissue swelling at the level of the fixation plate. There are several old tiny radiopacities projected over the cervical region on the left likely due to old penetrating trauma. IMPRESSION: 1. Interval cervical fusion and instrumentation at C3-4 with minimal anterolisthesis at that level. 2. Mild prevertebral soft tissue swelling at the level of the fixation plate. 3. Moderate multilevel degenerative change. Electronically signed by: Jan Stockton MD (06/08/2018 3:16 PM) [facility]
== END | disposition home or self-care (01) ==
LOC: RAD 10:14
PROVIDERS: ATTEND Neurological Surgery
DX: M47.892 Other spondylosis, cervical region (principal); M79.89 Other specified soft tissue disorders; M48.02 Spinal stenosis, cervical region; M46.02 Spinal enthesopathy, cervical region; Z98.1 Arthrodesis status
CPT/HCPCS: 72040

== ENCOUNTER → 2018-06-14 | Outpatient (CLI) | payer MEDICARE ==
[2018-06-01 16:20] VITALS: BP 163/107
[~2018-06-14] MED LIST changes: +BARIUM SULFATE 40% (APPLE) 148 GM PWD. PO ONE
--- NOTE | 2018-06-19 09:19 | RAD ---
Examination: VIDEO SWALLOW STUDY History: FL TIME: 1.5 MINS
DYSPHAGIA POST CERVICAL FUSION Comparison/Correlation: None Findings: Video swallow was performed utilizing 1.5 minutes of fluoroscopy. Multiple substances were utilized. Please refer to speech pathologist report for details of this examination in regards oral pharyngeal motility and discussion of aspiration/penetration. Incidental note is made of anteriorly located plate and associated screws at the C3-C4 level. Intervertebral disc spacer material noted at this level. This space narrowing at C4-5 and severe disc space narrowing at C5-6 noted. Cricopharyngeal hypertrophy is notable. Incidental note is made of prolonged retention of a small to moderate quantity of contrast within the cervical esophagus. Occasional retrograde motion of contrast within the cervical esophagus noted. Impression: Video swallow was performed. Please refer to speech pathologist report for details. Cricopharyngeal hypertrophy. Prolonged retention of contrast within the cervical esophagus. Occasional retrograde motion of contrast within the cervical esophagus. Electronically signed by: Emmanuel Mehta MD (06/19/2018 9:16 AM) [id number]
== END | disposition home or self-care (01) ==
LOC: RAD 13:21
PROVIDERS: ATTEND Neurological Surgery
DX: J39.2 Other diseases of pharynx (principal); R13.19 Other dysphagia; M48.02 Spinal stenosis, cervical region
CPT/HCPCS: 74230; 92526; 92611

== ENCOUNTER → 2018-08-27 | Outpatient (CLI) | payer MEDICARE ==
[~2018-08-27] MED LIST changes: -BARIUM SULFATE 40% (APPLE) 148 GM PWD. PO ONE
--- NOTE | 2018-08-27 12:32 | KCIC ---
2 view study of the cervical spine Clinical indications: Status post cervical fusion. Follow-up study. COMPARISON: June 08, 2018. FINDINGS: Again seen is an anterior cervical fusion at C3-4. Alignment and position of surgical hardware is unchanged. Grade 1 anterolisthesis of C3-4 stable. No discitis or acute fracture or lytic process or prevertebral soft tissue swelling is evident. IMPRESSION: Stable C3-4 anterior cervical fusion. Electronically signed by: Connor Quiñonez MD (08/27/2018 12:29 PM) [id number]
== END | disposition home or self-care (01) ==
LOC: KCIC 09:28
PROVIDERS: ATTEND Neurological Surgery
DX: M43.12 Spondylolisthesis, cervical region (principal); Z98.1 Arthrodesis status
CPT/HCPCS: 72040

== ENCOUNTER → 2018-11-01 | Outpatient (CLI) | payer MEDICARE ==
--- NOTE | 2018-11-01 14:13 | KCIC ---
EXAMINATION: Magnetic resonance imaging (MRI) of the cervical spine without contrast 11/01/2018 12:30 PM HISTORY: Cervical stenosis TECHNIQUE: Multiplanar multi-weighted MRI of the cervical spine was performed without intravenous contrast using the standard cervical spine protocol. Contrast information: None administered COMPARISON: Cervical spine radiograph 11/01/2018, MRI cervical spine 05/29/2018 FINDINGS: There is grade 1 anterolisthesis of C3 on C4. There is new anterior cervical discectomy and fusion hardware at C3-C4. There is similar minimal retrolisthesis of C5 on C6. Vertebral body heights are maintained. Marrow signal intensity is normal in all sequences. There is mild cord signal alteration at C3-C4, stable from the prior examination with minimal cord atrophy suggestive of myelomalacia. Posterior fossa is normal in appearance. Vertebral artery flow voids are maintained. There is no prevertebral soft tissue swelling. No paraspinal soft tissue abnormality is identified. C2-C3: Disc is normal in configuration. There is mild facet arthropathy. No significant neuroforaminal or spinal canal stenosis. C3-C4: There is uncovering of the disc secondary to anterolisthesis. There is mild facet arthropathy with mild uncovertebral joint disease. There is mild bilateral neuroforaminal stenosis. Mild residual spinal canal stenosis with ligamentum flavum infolding. C4-C5: There is mild disc bulge. There is mild to moderate facet arthropathy. Mild uncovertebral joint disease. Mild left neuroforaminal stenosis. No spinal canal stenosis. Findings are stable. C5-C6: There is a posterior disc osteophyte complex. There is mild facet arthropathy and moderate uncovertebral joint disease. There is moderate bilateral neuroforaminal stenosis without significant interval change. There is mild spinal canal stenosis, exacerbated by ligamentum flavum infolding. Findings are stable. C6-C7: There is a posterior disc osteophyte complex. Mild facet and mild to moderate uncovertebral joint disease resulting in moderate left and mild right neuroforaminal stenosis. There is mild spinal canal stenosis exacerbated by ligamentum flavum infolding. Findings are stable. C7-T1: Disc is normal in configuration. No significant neuroforaminal or spinal canal stenosis. IMPRESSION: 1. Interval postoperative changes from anterior cervical discectomy fusion at C3-C4 with ventral plate and screws. There is improved spinal canal stenosis with residual myelomalacia at the C3-C4 vertebral level. 2. Moderate degenerative disc disease at C5-C6 and C6-C7 appears similar. Electronically signed by: Sanjana Donaldson MD (11/01/2018 2:10 PM) [id number]
--- NOTE | 2018-11-01 15:43 | KCIC ---
Cervical spine radiograph 11/01/2018 12:15 PM INDICATION: Cervical stenosis COMPARISON: Cervical spine radiograph 08/27/2018 TECHNIQUE: AP and lateral views of the cervical spine are provided. FINDINGS: Anterior cervical discectomy and fusion hardware is identified with ventral plate and screws at C3-C4. There is minimal retrolisthesis of C5 on C6. Moderate cervical spondylosis, better detailed on MRI cervical spine. Mild facet arthropathy. There is no lucency surrounding the hardware. There is no prevertebral soft tissue swelling. Moderate facet and uncovertebral joint disease is noted. IMPRESSION: Postoperative changes from anterior cervical discectomy and fusion at C5-C6 without evidence for hardware failure. Electronically signed by: Sanjana Donaldson MD (11/01/2018 3:40 PM) [id number]
== END | disposition home or self-care (01) ==
LOC: KCIC MRI 12:33
PROVIDERS: ATTEND Neurological Surgery
DX: M48.02 Spinal stenosis, cervical region (principal); M50.30 Other cervical disc degeneration, unspecified cervical region; G95.89 Other specified diseases of spinal cord; M25.78 Osteophyte, vertebrae; M12.88 Other specific arthropathies, not elsewhere classified, other specified site
CPT/HCPCS: 72040; 72141